=== PATIENT | male | born 1940 | race Caucasian/White ===

== ENCOUNTER → 2016-12-01 | Outpatient (CLI) | payer MEDICARE ==
[2016-12-01 19:35] LABS: FOLATE 6.89 ng/mL (>2.76)
[2016-12-02 17:16] LABS: FREE T3 3.23 pg/mL (2.77-5.27)
== END ==
LOC: OD 16:02
PROVIDERS: ATTEND Specialist
DX: F03.90 Unspecified dementia, unspecified severity, without behavioral disturbance, psychotic disturbance, mood disturbance, and anxiety (principal); Z79.899 Other long term (current) drug therapy
CPT/HCPCS: 36415; 82607; 82746; 84439; 84443; 84481

== ENCOUNTER → 2016-12-15 | Outpatient (CLI) | payer MEDICARE ==
--- NOTE | 2016-12-15 14:50 | RADIOLOGY REPORT (SQ) ---
EXAM DESCRIPTION: CT HEAD WITHOUT COMPLETED DATE/TIME: 12/15/2016 1:34 pm REASON FOR STUDY: DEMENTIA (F03.90) F03.90 UNSPECIFIED DEMENTIA WITHOUT BEHAVIORAL DISTURBANCE COMPARISON: No previous brain imaging available TECHNIQUE: Axial images acquired through the brain without intravenous contrast. Images reviewed wi th bone, brain and subdural windows. Images stored on PACS. All CT scanners at this facility use dose modulation, iterative reconstruction, and/or weight based d osing when appropriate to reduce radiation dose to as low as reasonably achievable (ALARA). [facility]: Dose Right [facility]: CareDose [facility]: Dose Right [facility]: Teradose 4D [facility]: [employer] RADIATION DOSE: Up-to-date CT equipment and radiation dose reduction techniques were employed. CTDIv ol: 49.0 mGy. DLP: 1371 mGy-cm. mGy. LIMITATIONS: Motion artifact FINDINGS: Motion artifact. Patient was scanned twice. 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 No gross CT evidence of acute large territory ischemic change, acute intracranial hemorrhage, mass effect, or midline shift. Limited bone window images demonstrate that the paranasal sinuses and mastoid air cells are clear. IMPRESSION: No acute findings. Multiple old infarcts as above. Limited study due to patient motion artifact. EVIDENCE OF ACUTE STROKE: NO. COMMENT: Quality ID # [id number]: Final reports with documentation of one or more dose reduction techniques (e.g., Automated exposure control, adjustment of the mA and/or kV according to patient size, use of iterative reconstruction technique) TECHNICAL DOCUMENTATION: JOB ID: [id number] [email or web address] All Rights Reserved
== END ==
LOC: RAD 13:03
PROVIDERS: ATTEND Specialist
DX: F03.90 Unspecified dementia, unspecified severity, without behavioral disturbance, psychotic disturbance, mood disturbance, and anxiety (principal)
CPT/HCPCS: 70450

== ENCOUNTER 2018-11-12 09:37 | Inpatient (IN) | payer MEDICARE ==
[2018-11-12] MEDS ORDERED: METHYLPREDNISOLONE INJ 125 MG/2 ML SDV ONE (09:54)
[2018-11-12] MEDS ORDERED: IPRATROPIUM/ALBUTEROL 0.5-2.5 MG/3 ML AMPUL NEB ONE ×2 (09:54→09:55)
[2018-11-12] MEDS ORDERED: METHYLPREDNISOLONE INJ 125 MG/2 ML SDV IV ONE (09:55)
--- NOTE | 2018-11-12 10:12 | ER Document Report ---
Entered by RICCARDO GREEN SCRIBE 11/12/18 1011 Acting as scribe for:ROSI SEGOVIA MD ED Respiratory Problem - General Chief Complaint: Shortness Of Breath Stated Complaint: DIFFICULTY BREATHING Time Seen by Provider: 11/12/18 09:57 Information source: Patient, Relative Notes: Patient is an 78-year-old male who presents to the emergency department today with complaints of a cough with associated shortness of breath for the last "couple of days". Both the and the patient are poor historians so history is limited. Patient reports his cough has been nonproductive. Patient states his shortness of breath seems to be coming from the inability to "get air out". Patient states he has a nebulizer at home but he has not used it for several months. describes the cough as a "hard cough". The spouse reports that his oxygen saturations have been low at home. He is normally on oxygen at nighttime only. TRAVEL OUTSIDE OF THE [place] IN LAST 30 DAYS: No - Related Data Allergies/Adverse Reactions: No Known Allergies Allergy (Verified 08/29/15 11:20) Past Medical History - General Information source: Patient - Social History Smoking Status: Former Smoker Cigarette use (# per day): No Frequency of alcohol use: None Drug Abuse: None Lives with: Family Family History: Reviewed & Not Pertinent - Past Medical History Cardiac Medical History: Reports: Hx Congestive Heart Failure, Hx Coronary Artery Disease, Hx Heart Attack, Hx Hypercholesterolemia, Hx Hypertension Pulmonary Medical History: Reports: Hx COPD Endocrine Medical History: Reports: Hx Diabetes Mellitus Type 2, Hx Hypothyroi dism Renal/ Medical History: Reports: Hx Benign Prostatic Hyperplasia, Hx Renal Insufficiency GI Medical History: Reports: Hx Gastroesophageal Reflux Disease Musculoskeletal Medical History: Reports Hx Arthritis Past Surgical History: Reports: Hx Cardiac Catheterization, Hx Coronary Stent, Hx Orthopedic Surgery - bilateral knee replacement, Hx Pacemaker - defib - Immunizations Immunizations up to date: No Hx Diphtheria, Pertussis, Tetanus Vaccination: No Review of Systems - Review of Systems Constitutional: No symptoms reported EENT: No symptoms reported Cardiovascular: No symptoms reported Respiratory: See HPI, Cough, Short of breath Gastrointestinal: No symptoms reported Genitourinary: No symptoms reported Male Genitourinary: No symptoms reported Musculoskeletal: See HPI, Leg swelling Skin: No symptoms reported Hematologic/Lymphatic: No symptoms reported Neurological/Psychological: No symptoms reported -: Yes All other systems reviewed and negative Physical Exam - Vital signs Vitals: Temp Pulse Resp BP Pulse Ox 98.1 F 87 26 H 159/63 H 81 L 11/12/18 09:43 11/12/18 09:43 11/12/18 09:43 11/12/18 09:43 11/12/18 09:43 - Notes Notes: physical Exam: General: Alert, appears short of breath, obese. HEENT: Normocephalic. Atraumatic. PERRL. Extraocular movements intact. Oropharynx clear. Neck: Supple. Non-tender. Respiratory: High pitched wheezing best heard at the level of the epiglottis. Moderate respiratory distress. Cardiovascular: Regular rate and rhythm. Abdominal: Morbidly obese. No distension. Normal Bowel Sounds. Back: No gross abnormalities. Extremities: Moves all four extremities. Upper extremities: Normal inspection. Normal ROM. Lower extremities: Brawny induration, 2-3+ pitting edema bilaterally which is unable to state if this is baseline or not. Neurological: Normal cognition. AAOx4. Normal speech. Psychological: Normal affect. Normal Mood. Skin: Warm. Dry. Normal color. Course - Vital Signs Vital signs: Temp Pulse Resp BP Pulse Ox 98.1 F 87 18 153/65 H 92 11/12/18 09:43 11/12/18 09:43 11/12/18 12:00 11/12/18 11:01 11/12/18 12:00 - Laboratory Result Diagrams: 11/12/18 09:58 11/12/18 09:58 Laboratory results interpreted by me: 11/12/18 11/12/18 11/12/18 09:58 09:58 09:58 RBC 3.66 L Hgb 9.3 L Hct 29.9 L MCH 25.3 L MCHC 31.1 L RDW 18.3 H Potassium 5.1 H BUN 25 H Creatinine 1.30 H Est GFR (MDRD) Non-Af 53 L Glucose 198 H Creatine Kinase 54 L NT-Pro-B Natriuret Pep 1620 H - Diagnostic Test Radiology reviewed: Image reviewed, Reports reviewed - Chest x-ray shows enlarged heart with congestive heart failure - EKG Interpretation by Me EKG shows normal: [place], Intervals, QRS Complexes, ST-T Waves Rate: Normal - 75 Rhythm: Other - Ventricular paced rhythm - Consults Stephen Dunaway NP Time consulted: 12:25 Consulted provider: will come to ER Critical Care Note - Critical Care Note Total time excluding time spent on procedures (mins): 40 Discharge - Discharge Clinical Impression: Peripheral edema, Hypoxemia Congestive heart failure Qualifiers: Heart failure type: unspecified Heart failure chronicity: acute on chronic Qualified Code(s): I50.9 - Heart failure, unspecified Dyspnea Qualifiers: Dyspnea type: unspecified Qualified Code(s): R06.00 - Dyspnea, unspecified Anemia Qualifiers: Anemia type: unspecified type Qualified Code(s): D64.9 - Anemia, unspecified Condition: Good Disposition: ADMITTED INPATIENT Admitting Provider: Alecia (Hospitalist) Unit Admitted: IVA Scribe Attestation: 11/12/18 12:44 I personally performed the services described in the documentation, reviewed and edited the documentation which was dictated to the scribe in my presence, and it accurately records my words and actions. I personally performed the services described in the documentation, reviewed and edited the documentation which was dictated to the scribe in my presence, and it accurately records my words and actions.
[2018-11-12 10:41] LABS: ABSOLUTE EOSINOPHILS # (AUTO) 0.3 10^3/uL (0.0-0.6); ABSOLUTE LYMPHOCYTES (AUTO) 0.9 10^3/uL (0.5-4.7); ABSOLUTE MONOCYTES (AUTO) 0.4 10^3/uL (0.1-1.4); BASOPHILS % (AUTO) 0.7 % (0-2); EOSINOPHILS % (AUTO) 4.2 % (0-6); HEMATOCRIT 29.9 % (37.9-51.0); HEMOGLOBIN 9.3 g/dL (13.5-17.0); LYMPHOCYTES % (AUTO) 13.4 % (13-45); MEAN CORPUSCULAR HEMOGLOBIN 25.3 pg (27.0-33.4); MEAN CORPUSCULAR HGB CONC 31.1 g/dL (32.0-36.0); MEAN CORPUSCULAR VOLUME 82 fl (80-97); MONOCYTES % (AUTO) 6.2 % (3-13); PLATELET COUNT 224 10^3/uL (150-450); RED BLOOD COUNT 3.66 10^6/uL (4.35-5.55); RED CELL DISTRIBUTION WIDTH 18.3 % (11.5-14.0); SEGMENTED NEUTROPHILS % (AUTO) 75.5 % (42-78); TOTAL CELLS COUNTED % (AUTO) 100 %; WHITE BLOOD COUNT 6.6 10^3/uL (4.0-10.5)
[2018-11-12] MEDS: ALBUTEROL SULFATE 0.083% NEB 2.5 MG/3 ML AMPUL NEB SCH (10:53)
[2018-11-12 11:01] LABS: ALBUMIN 3.8 g/dL (3.5-5.0); ALKALINE PHOSPHATASE 54 U/L (38-126); ANION GAP 8 (5-19); ASPARTATE AMINO TRANSFERASE 20 U/L (17-59); BILIRUBIN,DIRECT 0.4 mg/dL (0.0-0.4); BILIRUBIN,TOTAL 0.6 mg/dL (0.2-1.3); BLOOD UREA NITROGEN 25 mg/dL (7-20); CALCIUM 8.9 mg/dL (8.4-10.2); CARBON DIOXIDE 28 mmol/L (22-30); CHLORIDE 104 mmol/L (98-107); CREATINE KINASE 54 U/L (55-170); GLUCOSE 198 mg/dL (75-110); POTASSIUM 5.1 mmol/L (3.6-5.0); TOTAL PROTEIN 6.6 g/dL (6.3-8.2)
[2018-11-12 11:12] LABS: CREATINE KINASE MB 1.22 ng/mL (<4.55); NT PRO BNP 1620 pg/mL (<450); TROPONIN I < 0.012 ng/mL
--- NOTE | 2018-11-12 11:13 | RADIOLOGY REPORT (SQ) ---
EXAM DESCRIPTION: CHEST SINGLE VIEW COMPLETED DATE/TIME: 11/12/2018 10:16 am REASON FOR STUDY: SOB COMPARISON: None. NUMBER OF VIEWS: One view. TECHNIQUE: Single frontal radiographic view of the chest acquired. LIMITATIONS: None. FINDINGS: LUNGS AND PLEURA: Airspace disease in the lung bases, left greater than right. Small effu sions. MEDIASTINUM AND HILAR STRUCTURES: No masses or contour abnormality. HEART AND VASCULATURE: Cardiac enlargement. Vascular congestion. BONES: No acute findings. HARDWARE: Unchanged position of defibrillator. OTHER: No other significant finding. IMPRESSION: CHF. TECHNICAL DOCUMENTATION: JOB ID: [id number] [employer]- All Rights Reserved Reading location - IP/workstation name: [email or web address]
[2018-11-12] MEDS ORDERED: FUROSEMIDE INJ/PF 100 MG/10 ML SDV IV ONE (11:45)
[2018-11-12] MEDS ORDERED: TEMAZEPAM 15 MG CAPSULE PO PRN (12:49)
[2018-11-12] MEDS ORDERED: OXYCODONE-ACETAMINOPHEN 5-325 MG TABLET PO PRN (12:49)
[2018-11-12] MEDS ORDERED: ONDANSETRON HCL INJ/PF 4 MG/2 ML SDV IV PRN (12:49)
[2018-11-12] MEDS ORDERED: ACETAMINOPHEN 325 MG TABLET PO PRN (12:49)
[2018-11-12] MEDS ORDERED: DEXTROSE 50%-WATER 25 GM/50 ML DISP.SYRIN IV PRN ×2 (12:58)
[2018-11-12] MEDS ORDERED: DEXTROSE 40% GEL 15 GM TUBE PO PRN ×2 (12:58)
[2018-11-12] MEDS ORDERED: GLUCAGON,HUMAN RECOMB 1 MG INJ IM PRN (12:58)
--- NOTE | 2018-11-12 13:06 | Progress Note Acknowledgement ---
Progress Note Acknowledgement Progess Note Acknowledgement: I, the undersigned member of the medical staff with appropriate privileges and with supervisory authority over [Stephen Dunaway], a dependent practice allied health professional, acknowledge that I have reviewed the progress notes entered on this patient, and in my professional judgment believe that the assessment made and/or any care evidenced was appropriate
--- NOTE | 2018-11-12 13:22 | PDOC H&P ---
History of Present Illness Admission Date/PCP: 11/12/18 12:48 SHARYN JAFFE MD Patient complains of: Shortness of breath History of Present Illness: Santa MIXON is a 78 year old male who presents the ER with shortness of breath. Patient has a history of congestive heart failure unknown type at this time but I suspect its systolic nature as patient has AICD. We will get all records from [place]. Patient is on BiPAP in the ER at this time breathing much easier. Chest x-ray shows acute on chronic congestive heart failure. Patient did take at home medication include Lasix 80 minutes p.o. daily prior to arrival all active is been aggravating factor. Past Medical History Cardiac Medical History: Reports: Congestive Heart Failure, Coronary Artery Disease, Myocardial Infarction, Hyperlipidema, Hypertension Pulmonary Medical History: Reports: Chronic Obstructive Pulmonary Disease (COPD) Denies: Tuberculosis Endocrine Medical History: Reports: Diabetes Mellitus Type 2, Hypothyroidism GI Medical History: Reports: Gastroesophageal Reflux Disease Musculoskeltal Medical History: Reports: Arthritis Psychiatric Medical History: Denies: Depression Past Surgical History Past Surgical History: Reports: Cardiac Catheterization, Coronary Stent, Or thopedic Surgery - bilateral knee replacement, Pacemaker - defib Social History Information Source: Parent Lives with: Family Smoking Status: Former Smoker Frequency of Alcohol Use: None Hx Recreational Drug Use: No Drugs: None Hx Prescription Drug Abuse: No - Advance Directive Resuscitation Status: Full Code Family History Parental Family History Reviewed: Yes - Patient is a poor historian Children Family History Reviewed: Unknown Sibling(s) Family History Reviewed.: Unknown Medication/Allergy Home Medications: Carvedilol [Coreg 25 mg Tablet] 25 mg PO BID 05/22/11 Furosemide [Lasix 80 mg Tablet] 40 mg PO QAM 05/22/11 Hydralazine HCl [Apresoline 50 mg Tablet] 50 mg PO Q8 05/22/11 Potassium Chloride [Klor-Con 10 Meq Capsule ER] 20 meq PO QAM 05/22/11 Pravastatin Sodium [Pravachol] 40 mg PO QHS 05/22/11 Amlodipine Besylate [Norvasc 10 mg Tablet] 10 mg PO QAM 05/16/12 Aspirin [Ecotrin] 81 mg PO DAILY 04/24/15 Clopidogrel Bisulfate [Clopidogrel] 75 mg PO QAM 04/24/15 Cyanocobalamin (Vitamin B-12) [Vitamin B-12 100 mcg Tablet] 1,000 mg PO DAILY 04/24/15 Donepezil HCl 10 mg PO QAM 04/24/15 Finasteride 5 mg PO QAM 04/24/15 Glimepiride [Amaryl] 2 mg PO ACBRKFST 04/24/15 Tamsulosin HCl 0.4 mg PO PCSUPPER 04/24/15 Sacubitril/Valsartan [Entresto 49 mg-51 mg Tablet] 1 each PO BID #60 tablet 09/01/15 Levothyroxine Sodium 100 mcg PO Q6AM 11/12/18 Pantoprazole Sodium [Protonix [address] Tablet] 40 mg PO QAM 11/12/18 Umeclidinium Brm/Vilanterol Tr [Anoro Ellipta 62.5-25 Mcg INH] 1 each IH DAILY 11/12/18 Allergies/Adverse Reactions: No Known Allergies Allergy (Verified 08/29/15 11:20) Review of Systems Constitutional: ABSENT: chills, fever(s), headache(s), weight gain, weight loss Eyes: ABSENT: visual disturbances Ears: ABSENT: hearing changes Cardiovascular: ABSENT: chest pain, dyspnea on exertion, edema, orthropnea, palpitations Respiratory: PRESENT: dyspnea. ABSENT: cough, hemoptysis Gastrointestinal: ABSENT: abdominal pain, constipation, diarrhea, hematemesis, hematochezia, nausea, vomiting Genitourinary: ABSENT: dysuria, hematuria Musculoskeletal: ABSENT: joint swelling Integumentary: ABSENT: rash, wounds Neurological: ABSENT: abnormal gait, abnormal speech, confusion, dizziness, focal weakness, syncope Psychiatric: ABSENT: anxiety, depression, homidical ideation, suicidal ideation Endocrine: ABSENT: cold intolerance, heat intolerance, polydipsia, polyuria Hematologic/Lymphatic: ABSENT: easy bleeding, easy bruising Physical Exam Vital Signs: Temp Pulse Resp BP Pulse Ox 98.1 F 87 18 153/65 H 92 11/12/18 09:43 11/12/18 09:43 11/12/18 12:00 11/12/18 11:01 11/12/18 12:00 Intake & Output 11/11/18 11/12/18 11/13/18 06:59 06:59 06:59 Weight 134.8 kg General appearance: PRESENT: no acute distress, well-developed, well-nourished Head exam: PRESENT: atraumatic, normocephalic Eye exam: PRESENT: conjunctiva pink, EOMI, PERRLA. ABSENT: scleral icterus Ear exam: PRESENT: normal external ear exam Mouth exam: PRESENT: moist, tongue midline Neck exam: ABSENT: carotid bruit, JVD, lymphadenopathy, thyromegaly Respiratory exam: PRESENT: crackles, decreased breath sounds, symmetrical, tachypnea, other - On BiPAP. ABSENT: rales, rhonchi, wheezes Cardiovascular exam: PRESENT: RRR. ABSENT: diastolic murmur, rubs, systolic murmur Pulses: PRESENT: normal dorsalis pedis pul Vascular exam: PRESENT: normal capillary refill GI/Abdominal exam: PRESENT: normal bowel sounds, soft. ABSENT: distended, guarding, mass, organolmegaly, rebound, tenderness Extremities exam: PRESENT: full ROM. ABSENT: calf tenderness, clubbing, pedal edema Neurological exam: PRESENT: alert, awake, oriented to person, oriented to place, oriented to time, oriented to situation, CN II-XII grossly intact. ABSENT: m otor sensory deficit Psychiatric exam: PRESENT: appropriate affect, normal mood. ABSENT: homicidal ideation, suicidal ideation Skin exam: PRESENT: dry, intact, warm. ABSENT: cyanosis, rash Results Laboratory Results: 11/12/18 09:58 11/12/18 09:58 11/12/18 11/12/18 11/12/18 09:58 09:58 10:20 WBC 6.6 RBC 3.66 L Hgb 9.3 L Hct 29.9 L MCV 82 MCH 25.3 L MCHC 31.1 L RDW 18.3 H Plt Count 224 Seg Neutrophils % 75.5 Sodium 139.5 Potassium 5.1 H Chloride 104 Carbon Dioxide 28 Anion Gap 8 BUN 25 H Creatinine 1.30 H Est GFR ( Amer) > 60 Glucose 198 H Lactic Acid 1.8 Calcium 8.9 Total Bilirubin 0.6 AST 20 Alkaline Phosphatase 54 Total Protein 6.6 Albumin 3.8 11/12/18 11/12/18 09:58 09:58 Creatine Kinase 54 L CK-MB (CK-2) 1.22 Troponin I < 0.012 NT-Pro-B Natriuret Pep 1620 H Impressions: Chest X-Ray 11/12/18 09:55 IMPRESSION: CHF. Assessment and Plan - Diagnosis (1) Acute on chronic systolic (congestive) heart failure Is this a current diagnosis for this admission?: Yes Plan: 11/12/2018-most likely a systolic in nature as patient does have a AICD. I discussed this with Dr. Juan no echo will be performed as patient has a AICD. We will obtain records from [place]. Will place patient on Lasix 40 g IV 3 times daily, continue beta-blockers, will add GUSTAVO inhibitor and Aldactone as appropriate (2) Chronic kidney disease, stage III (moderate) Is this a current diagnosis for this admission?: Yes Plan: 11/12/2018-stable at this time. We will continue to follow daily BMPs. Once I see a bump in his creatinine I will cut back on his Lasix at that time. (3) Hyperkalemia Is this a current diagnosis for this admission?: Yes Plan: 11/12/2018-mild. Potassium 5.1. Patient will be diuresed this will most likely drop the potassium to normal range. We will continue to follow daily BMP (4) Respiratory distress Is this a current diagnosis for this admission?: Yes Plan: 11/12/2018-patient on BiPAP this time much more comfortable. We will continue BiPAP until patient is diuresed and able to breathe and talk full sentences. We will have her respiratory therapy follow make changes to BiPAP as necessary (5) Diabetes mellitus type 2 in obese Is this a current diagnosis for this admission?: Yes Plan: 11/12/2018-blood sugar in the ER is 198. Will place patient on sliding scale insulin before meals and at bedtime with cardiac diet. Will continue home oral medication once patient is able to take all medications as he is on BiPAP at this moment (6) Hypertension Is this a current diagnosis for this admission?: Yes Plan: 11/12/2018-continue Apresoline, Entresto and Norvasc at this time. Patient will be given Lasix 40 mg IV 3 times daily. (7) Coronary artery disease Is this a current diagnosis for this admission?: Yes Plan: 11/12/2018-continue Plavix (8) Anemia Qualifiers: Anemia type: unspecified type Qualified Code(s): D64.9 - Anemia, unspecified Is this a current diagnosis for this admission?: Yes Plan: 11/12/2018-after reviewing previous CBCs seem to be chronic in nature. We will continue to follow daily CBCs (9) Hypothyroidism Is this a current diagnosis for this admission?: Yes Plan: 11/12/2018-continue Synthroid from home - Time Time Spent with patient: 35 or more minutes - Inpatient Certification Based on my medical assessment, after consideration of the patient's comorbidities, presenting symptoms, or acuity I expect that the services needed warrant INPATIENT care.: Yes I certify that my determination is in accordance with my understanding of Medicare's requirements for reasonable and necessary INPATIENT services [42 CFR 412.3e].: Yes Medical Necessity: Other - BiPAP, IV diuresis
[2018-11-12 14:51] LABS: APPEARANCE,URINE CLEAR; BILIRUBIN,URINE NEGATIVE (NEGATIVE); COLOR,URINE YELLOW; GLUCOSE, URINE NEGATIVE (NEGATIVE); KETONES,URINE NEGATIVE (NEGATIVE); LEUKOCYTE ESTERASE,URINE NEGATIVE (NEGATIVE); NITRITE,URINE NEGATIVE (NEGATIVE); PROTEIN,URINE NEGATIVE (NEGATIVE); URINE SPECIFIC GRAVITY 1.008; UROBILINOGEN,URINE NEGATIVE mg/dL (<2.0)
[2018-11-12] MEDS: FUROSEMIDE INJ/PF 40 MG/4 ML SDV IV SCH ×2 (15:51→21:59)
[2018-11-12] MEDS: INSULIN REG, HUMAN 100 UNIT/ML 3 ML VIAL (PYX) SUBCUT SCH ×2 (15:58→22:05)
[2018-11-12] MEDS: HYDRALAZINE HCL 50 MG TABLET PO SCH ×2 (15:58→21:58)
[2018-11-12] MEDS: HEPARIN SOD (PORCINE) 5,000 UNIT/ML 1 ML VIAL SUBCUT SCH ×2 (15:58→21:59)
[2018-11-12] MEDS ORDERED: ALBUTEROL SULFATE 0.083% NEB 2.5 MG/3 ML AMPUL NEB PRN (16:18)
[2018-11-12] MEDS: TAMSULOSIN HCL 0.4 MG CAP.SR.24H PO SCH (17:34)
[2018-11-12] MEDS: SACUBITRIL/VALSARTAN 49 MG/51 MG TABLET PO SCH (17:34)
[2018-11-12] MEDS: ATORVASTATIN CALCIUM 10 MG TABLET PO SCH (21:58)
[2018-11-12] MEDS ORDERED: (PENDING PHARMACY ID) (Pravastatin Sodium [Pravachol] 40 MG) PO SCH (22:00)
[2018-11-12] MEDS ORDERED: CARVEDILOL 12.5 MG TABLET PO SCH (22:00)
--- NOTE | 2018-11-13 00:15 | EKG REPORT ---
SEVERITY:- ABNORMAL ECG - VENTRICULAR-PACED RHYTHM : Confirmed by: Keira Juan MD 13-Nov-2018 00:14:48
[2018-11-13] MEDS ORDERED: METHYLPREDNISOLONE INJ 40 MG/1 ML SDV IV ONE (02:15)
[2018-11-13 05:14] LABS: ABSOLUTE LYMPHOCYTES (AUTO) 0.6 10^3/uL (0.5-4.7); ABSOLUTE MONOCYTES (AUTO) 0.1 10^3/uL (0.1-1.4); ABSOLUTE NEUT (AUTO) 4.1 10^3/uL (1.7-8.2); BASOPHILS % (AUTO) 0.1 % (0-2); HEMATOCRIT 28.7 % (37.9-51.0); LYMPHOCYTES % (AUTO) 12.6 % (13-45); MEAN CORPUSCULAR HEMOGLOBIN 25.3 pg (27.0-33.4); MEAN CORPUSCULAR HGB CONC 31.4 g/dL (32.0-36.0); MEAN CORPUSCULAR VOLUME 81 fl (80-97); MONOCYTES % (AUTO) 2.6 % (3-13); PLATELET COUNT 182 10^3/uL (150-450); RED BLOOD COUNT 3.57 10^6/uL (4.35-5.55); RED CELL DISTRIBUTION WIDTH 17.9 % (11.5-14.0); SEGMENTED NEUTROPHILS % (AUTO) 84.7 % (42-78); TOTAL CELLS COUNTED % (AUTO) 100 %; WHITE BLOOD COUNT 4.9 10^3/uL (4.0-10.5)
[2018-11-13 05:33] LABS: ANION GAP 8 (5-19); BLOOD UREA NITROGEN 28 mg/dL (7-20); CARBON DIOXIDE 30 mmol/L (22-30); CHLORIDE 101 mmol/L (98-107); GLUCOSE 189 mg/dL (75-110); PHOSPHORUS 4.8 mg/dL (2.5-4.5)
[2018-11-13] MEDS: HEPARIN SOD (PORCINE) 5,000 UNIT/ML 1 ML VIAL SUBCUT SCH ×3 (05:36→21:25)
[2018-11-13] MEDS: FUROSEMIDE INJ/PF 40 MG/4 ML SDV IV SCH (05:36)
[2018-11-13] MEDS: LEVOTHYROXINE SODIUM 0.1 MG TABLET PO SCH (05:37)
[2018-11-13] MEDS: HYDRALAZINE HCL 50 MG TABLET PO SCH ×3 (05:37→21:25)
[2018-11-13 06:57] LABS: ARTERIAL BLOOD BASE EXCESS 3.7 mmol/L; ARTERIAL BLOOD HCO3 29.3 mmol/L (20-24); ARTERIAL BLOOD O2 SATURATION 96.3 % (94-98); ARTERIAL BLOOD PCO2 49.9 mmHg (35-45); ARTERIAL BLOOD PH 7.39 (7.35-7.45); ARTERIAL BLOOD PO2 85.7 mmHg (80-100); ARTERIAL BLOOD TOTAL CO2 30.9 mmol/L (23-27)
[2018-11-13 06:59] LABS: ARTERIAL BLOOD FIO2 50%
[2018-11-13] MEDS: GLIMEPIRIDE 1 MG TABLET PO SCH (07:55)
[2018-11-13] MEDS: CLOPIDOGREL BISULFATE 75 MG TABLET PO SCH (07:55)
[2018-11-13] MEDS: INSULIN REG, HUMAN 100 UNIT/ML 3 ML VIAL (PYX) SUBCUT SCH ×4 (07:56→21:25)
[2018-11-13] MEDS: PANTOPRAZOLE SODIUM 40 MG TABLET.DR PO SCH (07:56)
[2018-11-13] MEDS: AMLODIPINE BESYLATE 10 MG TABLET PO SCH (07:56)
[2018-11-13] MEDS: DONEPEZIL HCL 5 MG TABLET PO SCH (07:56)
[2018-11-13] MEDS ORDERED: (PENDING PHARMACY ID) (Donepezil Hcl [Donepezil Hcl] 10 MG) PO SCH (08:00)
--- NOTE | 2018-11-13 08:14 | PDOC PROGRESS REPORT ---
Subjective Progress Note for:: 11/13/18 Subjective:: 11/13/2018-no complaints this a.m. Reason For Visit: ACUTE ON CHRONIC CONGESTIVE HEART FAILURE Physical Exam Vital Signs: Temp Pulse Resp BP Pulse Ox 97.8 F 68 20 147/70 H 95 11/13/18 07:33 11/13/18 07:33 11/13/18 07:33 11/13/18 07:33 11/13/18 07:33 Intake & Output 11/12/18 11/13/18 11/14/18 06:59 06:59 06:59 Intake Total 1152 Output Total 500 Balance 652 Weight 131 kg General appearance: PRESENT: no acute distress, well-developed, well-nourished Head exam: PRESENT: atraumatic, normocephalic Eye exam: PRESENT: conjunctiva pink, EOMI, PERRLA. ABSENT: scleral icterus Ear exam: PRESENT: normal external ear exam Mouth exam: PRESENT: moist, tongue midline Neck exam: ABSENT: carotid bruit, JVD, lymphadenopathy, thyromegaly Respiratory exam: PRESENT: decreased breath sounds, rales, symmetrical, unlabored, wheezes. ABSENT: rhonchi Cardiovascular exam: PRESENT: RRR. ABSENT: diastolic murmur, rubs, systolic murmur Pulses: PRESENT: normal dorsalis pedis pul Vascular exam: PRESENT: normal capillary refill GI/Abdominal exam: PRESENT: normal bowel sounds, soft. ABSENT: distended, guarding, mass, organolmegaly, rebound, tenderness Rectal exam: PRESENT: deferred Extremities exam: PRESENT: full ROM. ABSENT: calf tenderness, clubbing, pedal edema Neurological exam: PRESENT: alert, awake, oriented to person, oriented to place, oriented to time, oriented to situation, CN II-XII grossly intact. ABSENT: motor sensory deficit Psychiatric exam: PRESENT: appropriate affect, normal mood. ABSENT: homicidal ideation, suicidal ideation Skin exam: PRESENT: dry, intact, warm. ABSENT: cyanosis, rash Results Laboratory Results: 11/13/18 04:48 11/13/18 04:48 11/12/18 11/12/18 11/12/18 09:58 09:58 10:20 WBC 6.6 RBC 3.66 L Hgb 9.3 L Hct 29.9 L MCV 82 MCH 25.3 L MCHC 31.1 L RDW 18.3 H Plt Count 224 Seg Neutrophils % 75.5 Carbonic Acid HCO3/H2CO3 Ratio ABG pH ABG pCO2 ABG pO2 ABG HCO3 ABG O2 Saturation ABG Base Excess FiO2 Sodium 139.5 Potassium 5.1 H Chloride 104 Carbon Dioxide 28 Anion Gap 8 BUN 25 H Creatinine 1.30 H Est GFR ( Amer) > 60 Glucose 198 H Lactic Acid 1.8 Calcium 8.9 Phosphorus Magnesium Total Bilirubin 0.6 AST 20 Alkaline Phosphatase 54 Total Protein 6.6 Albumin 3.8 Urine Color Urine Appearance Urine pH Ur Specific [place] Urine Protein Urine Glucose (UA) Urine Ketones Urine Blood Urine Nitrite Ur Leukocyte Esterase Urine WBC (Auto) Urine RBC (Auto) 11/12/18 11/13/18 11/13/18 14:15 04:48 04:48 WBC 4.9 RBC 3.57 L Hgb 9.0 L Hct 28.7 L MCV 81 MCH 25.3 L MCHC 31.4 L RDW 17.9 H Plt Count 182 Seg Neutrophils % 84.7 H Carbonic Acid HCO3/H2CO3 Ratio ABG pH ABG pCO2 ABG pO2 ABG HCO3 ABG O2 Saturation ABG Base Excess FiO2 Sodium 139.1 Potassium 5.0 Chloride 101 Carbon Dioxide 30 Anion Gap 8 BUN 28 H Creatinine 1.42 H Est GFR ( Amer) 58 L Glucose 189 H Lactic Acid Calcium 9.0 Phosphorus 4.8 H Magnesium 2.5 H Total Bilirubin AST Alkaline Phosphatase Total Protein Albumin Urine Color YELLOW Urine Appearance CLEAR Urine pH 5.0 Ur Specific [place] 1.008 Urine Protein NEGATIVE Urine Glucose (UA) NEGATIVE Urine Ketones NEGATIVE Urine Blood NEGATIVE Urine Nitrite NEGATIVE Ur Leukocyte Esterase NEGATIVE Urine WBC (Auto) 0 Urine RBC (Auto) 0 11/13/18 05:34 WBC RBC Hgb Hct MCV MCH MCHC RDW Plt Count Seg Neutrophils % Carbonic Acid 1.50 H HCO3/H2CO3 Ratio 19:1 ABG pH 7.39 ABG pCO2 49.9 H ABG pO2 85.7 ABG HCO3 29.3 H ABG O2 Saturation 96.3 ABG Base Excess 3.7 FiO2 50% Sodium Potassium Chloride Carbon Dioxide Anion Gap BUN Creatinine Est GFR ( Amer) Glucose Lactic Acid Calcium Phosphorus Magnesium Total Bilirubin AST Alkaline Phosphatase Total Protein Albumin Urine Color Urine Appearance Urine pH Ur Specific [place] Urine Protein Urine Glucose (UA) Urine Ketones Urine Blood Urine Nitrite Ur Leukocyte Esterase Urine WBC (Auto) Urine RBC (Auto) 11/12/18 11/12/18 11/13/18 09:58 09:58 04:48 Creatine Kinase 54 L CK-MB (CK-2) 1.22 Troponin I < 0.012 NT-Pro-B Natriuret Pep 1620 H 2830 H Impressions: Chest X-Ray 11/12/18 09:55 IMPRESSION: CHF. Assessment and Plan - Diagnosis (1) Acute on chronic systolic (congestive) heart failure Is this a current diagnosis for this admission?: Yes Plan: 11/12/2018-most likely a systolic in nature as patient does have a AICD. I discussed this with Dr. Juan no echo will be performed as patient has a AICD. We will obtain records from [place]. Will place patient on Lasix 40 g IV 3 times daily, continue beta-blockers, will add GUSTAVO inhibitor and Aldactone as appropriate 11/13/2018-improved. Rales have diminished greatly. Patient does have an elevation in his BNP not sure if this is not just from his pulmonary disease. B reathing much easier able to talk in full sentences. He remained on BiPAP overnight. Awaiting records from transit clerk in [place]. DC IV Lasix. Place patient on Lasix 40 mg p.o. twice daily. This patient does have a history of COPD I will change his beta-latonya to metoprolol succinate 25 mg p.o. twice daily. Await echocardiogram results. (2) Chronic kidney disease, stage III (moderate) Is this a current diagnosis for this admission?: Yes Plan: 11/12/2018-stable at this time. We will continue to follow daily BMPs. Once I see a bump in his creatinine I will cut back on his Lasix at that time. 11/13/2018-slight bump in his creatinine this morning. Will DC IV Lasix Place patient on Lasix 40 g p.o. twice daily. Continue to follow daily renal panels. (3) Hyperkalemia Is this a current diagnosis for this admission?: Yes Plan: 11/12/2018-mild. Potassium 5.1. Patient will be diuresed this will most likely drop the potassium to normal range. We will continue to follow daily BMP 11/13/2018-improved. Continue diuresis. daily BMP. (4) Respiratory distress Is this a current diagnosis for this admission?: Yes Plan: 11/12/2018-patient on BiPAP this time much more comfortable. We will continue BiPAP until patient is diuresed and able to breathe and talk full sentences. We will have her respiratory therapy follow make changes to BiPAP as necessary 11/13/2018-improved at this time. Patient remains on BiPAP at night. Able to tolerate nasal cannula set up in the chair and eating. We will continue to follow continue BiPAP at night (5) Diabetes mellitus type 2 in obese Is this a current diagnosis for this admission?: Yes Plan: 11/12/2018-blood sugar in the ER is 198. Will place patient on sliding scale insulin before meals and at bedtime with cardiac diet. Will continue home oral medication once patient is able to take all medications as he is on BiPAP at this moment 11/13/2018-much improved. Will DC IV steroids Place patient on p.o. steroids. We will continue sliding scale insulin coverage before meals and at bedtime and oral medications. (6) Hypertension Is this a current diagnosis for this admission?: Yes Plan: 11/12/2018-continue Apresoline, Entresto and Norvasc at this time. Patient will be given Lasix 40 mg IV 3 times daily. 11/13/2018-continue Apresoline, Entresto, Norvasc. Added metoprolol succinate 25 mill grams p.o. twice daily. DC'd IV Lasix Place patient on Lasix 40 g p.o. 3 times daily (7) Coronary artery disease Is this a current diagnosis for this admission?: Yes Plan: 11/12/2018-continue Plavix 11/13/2018-continue Plavix (8) Anemia Qualifiers: Anemia type: unspecified type Qualified Code(s): D64.9 - Anemia, unspecified Is this a current diagnosis for this admission?: Yes Plan: 11/12/2018-after reviewing previous CBCs seem to be chronic in nature. We will continue to follow daily CBCs 11/13/2018-stable continue daily CBCs (9) Hypothyroidism Is this a current diagnosis for this admission?: Yes Plan: 11/12/2018-continue Synthroid from home 11/13/2018-continue Synthroid - Time Time Spent with patient: 15-24 minutes - Inpatient Certification Based on my medical assessment, after consideration of the patient's comorbidities, presenting symptoms, or acuity I expect that the services needed warrant INPATIENT care.: Yes I certify that my determination is in accordance with my understanding of Medicare's requirements for reasonable and necessary INPATIENT services [42 CFR 412.3e].: Yes Medical Necessity: Need for IV Antibiotics, Other - Diuresis, supportive care for COPD
[2018-11-13] MEDS: PREDNISONE 20 MG TABLET PO SCH (09:08)
[2018-11-13] MEDS: METOPROLOL SUCCINATE 25 MG TAB.SR.24H PO SCH ×2 (09:08→21:25)
[2018-11-13] MEDS: SACUBITRIL/VALSARTAN 49 MG/51 MG TABLET PO SCH ×2 (09:08→17:39)
[2018-11-13] MEDS: FUROSEMIDE 40 MG TABLET PO SCH ×2 (09:08→17:38)
[2018-11-13] MEDS: ASPIRIN 81 MG TABLET, ENT COATED PO SCH (09:08)
[2018-11-13] MEDS ORDERED: METHYLPREDNISOLONE INJ 40 MG/1 ML SDV IV SCH (10:00)
[2018-11-13] MEDS ORDERED: LISINOPRIL 5 MG TABLET PO SCH (10:00)
[2018-11-13] MEDS: TAMSULOSIN HCL 0.4 MG CAP.SR.24H PO SCH (17:38)
[2018-11-13] MEDS: ATORVASTATIN CALCIUM 10 MG TABLET PO SCH (21:25)
[2018-11-14 04:55] LABS: ABSOLUTE LYMPHOCYTES (AUTO) 0.7 10^3/uL (0.5-4.7); ABSOLUTE MONOCYTES (AUTO) 0.5 10^3/uL (0.1-1.4); ABSOLUTE NEUT (AUTO) 8.3 10^3/uL (1.7-8.2); HEMATOCRIT 27.7 % (37.9-51.0); HEMOGLOBIN 8.8 g/dL (13.5-17.0); LYMPHOCYTES % (AUTO) 7.3 % (13-45); MEAN CORPUSCULAR HEMOGLOBIN 25.3 pg (27.0-33.4); MEAN CORPUSCULAR HGB CONC 31.9 g/dL (32.0-36.0); MEAN CORPUSCULAR VOLUME 79 fl (80-97); MONOCYTES % (AUTO) 5.7 % (3-13); PLATELET COUNT 212 10^3/uL (150-450); RED BLOOD COUNT 3.49 10^6/uL (4.35-5.55); RED CELL DISTRIBUTION WIDTH 17.7 % (11.5-14.0); TOTAL CELLS COUNTED % (AUTO) 100 %; WHITE BLOOD COUNT 9.5 10^3/uL (4.0-10.5)
[2018-11-14 05:10] LABS: ANION GAP 7 (5-19); BLOOD UREA NITROGEN 42 mg/dL (7-20); CARBON DIOXIDE 33 mmol/L (22-30); CHLORIDE 99 mmol/L (98-107); GLUCOSE 115 mg/dL (75-110); POTASSIUM 4.5 mmol/L (3.6-5.0)
[2018-11-14] MEDS: HEPARIN SOD (PORCINE) 5,000 UNIT/ML 1 ML VIAL SUBCUT SCH ×3 (05:57→21:33)
[2018-11-14] MEDS: HYDRALAZINE HCL 50 MG TABLET PO SCH ×3 (05:57→21:33)
[2018-11-14] MEDS: LEVOTHYROXINE SODIUM 0.1 MG TABLET PO SCH (05:57)
[2018-11-14] MEDS: CLOPIDOGREL BISULFATE 75 MG TABLET PO SCH (07:37)
[2018-11-14] MEDS: DONEPEZIL HCL 5 MG TABLET PO SCH (07:38)
[2018-11-14] MEDS: GLIMEPIRIDE 1 MG TABLET PO SCH (07:38)
[2018-11-14] MEDS: AMLODIPINE BESYLATE 10 MG TABLET PO SCH (07:38)
[2018-11-14] MEDS: PANTOPRAZOLE SODIUM 40 MG TABLET.DR PO SCH (07:38)
[2018-11-14] MEDS: INSULIN REG, HUMAN 100 UNIT/ML 3 ML VIAL (PYX) SUBCUT SCH ×4 (07:41→22:33)
[2018-11-14] MEDS: FUROSEMIDE 40 MG TABLET PO SCH (09:25)
[2018-11-14] MEDS: PREDNISONE 20 MG TABLET PO SCH (09:25)
[2018-11-14] MEDS: METOPROLOL SUCCINATE 25 MG TAB.SR.24H PO SCH ×2 (09:26→21:33)
[2018-11-14] MEDS: ASPIRIN 81 MG TABLET, ENT COATED PO SCH (09:26)
[2018-11-14] MEDS: SACUBITRIL/VALSARTAN 49 MG/51 MG TABLET PO SCH ×2 (09:26→17:09)
--- NOTE | 2018-11-14 16:35 | PDOC PROGRESS REPORT ---
Subjective Progress Note for:: 11/14/18 Subjective:: The patient is an 78 year old male with a past medical history significant for CHF, CAD, [place], hypertension, hyperlipidemia, COPD, DM 2, hypothyroidism, GERD, arthritis who was admitted 11/12/2018 for CHF exacerbation. Next Patient was seen on morning rounds. Is found resting in bed comfortably on supplemental oxygen via nasal cannula 3 L/min. He is alert and oriented x3 (person, place, situation) and tells me that he uses 2 to 3 L O2 at baseline. He reports that he is nonambulatory but utilizes a scooter in the home. He states that he is feeling well today other than being slightly homesick and has no complaints or concerns. He denies fever, chills, chest pain, palpitations, orthopnea, dyspnea, cough, abdominal pain, nausea vomiting or diarrhea. He has no questions or concerns at this time. No concerns per nursing. Reason For Visit: ACUTE ON CHRONIC CONGESTIVE HEART FAILURE Physical Exam Vital Signs: Temp Pulse Resp BP Pulse Ox 97.4 F 67 18 123/41 L 93 11/14/18 11:14 11/14/18 14:00 11/14/18 11:14 11/14/18 11:14 11/14/18 11:14 Intake & Output 11/13/18 11/14/18 11/15/18 06:59 06:59 06:59 Intake Total 1152 640 240 Output Total 500 400 Balance 652 240 240 Weight 131 kg 130.7 kg General appearance: PRESENT: no acute distress, cooperative, morbidly obese, well-developed, well-nourished Head exam: PRESENT: atraumatic, normocephalic Eye exam: PRESENT: conjunctiva pink, EOMI, PERRLA. ABSENT: scleral icterus Ear exam: PRESENT: normal external ear exam Mouth exam: PRESENT: moist, tongue midline Neck exam: ABSENT: carotid bruit, JVD, lymphadenopathy, thyromegaly Respiratory exam: PRESENT: clear to auscultation leann, symmetrical, unlabored. ABSENT: rales, rhonchi, wheezes Cardiovascular exam: PRESENT: RRR, +S1, +S2. ABSENT: diastolic murmur, rubs, systolic murmur Pulses: PRESENT: normal dorsalis pedis pul Vascular exam: PRESENT: normal capillary refill GI/Abdominal exam: PRESENT: normal bowel sounds, soft, other - Rotund. ABSENT: distended, guarding, mass, organolmegaly, rebound, tenderness Rectal exam: PRESENT: deferred Extremities exam: PRESENT: full ROM. ABSENT: calf tenderness, clubbing, pedal edema Neurological exam: PRESENT: alert, awake, oriented to person, oriented to place, oriented to time, oriented to situation, CN II-XII grossly intact. ABSENT: motor sensory deficit Psychiatric exam: PRESENT: appropriate affect, normal mood. ABSENT: homicidal ideation, suicidal ideation Skin exam: PRESENT: dry, intact, warm. ABSENT: cyanosis, rash Results Laboratory Results: 11/14/18 04:16 11/14/18 04:16 11/14/18 11/14/18 04:16 04:16 WBC 9.5 RBC 3.49 L Hgb 8.8 L Hct 27.7 L MCV 79 L MCH 25.3 L MCHC 31.9 L RDW 17.7 H Plt Count 212 Seg Neutrophils % 87.0 H Sodium 139.3 Potassium 4.5 Chloride 99 Carbon Dioxide 33 H Anion Gap 7 BUN 42 H Creatinine 1.62 H Est GFR ( Amer) 50 L Glucose 115 H Calcium 9.0 11/12/18 11/12/18 11/13/18 09:58 09:58 04:48 Creatine Kinase 54 L CK-MB (CK-2) 1.22 Troponin I < 0.012 NT-Pro-B Natriuret Pep 1620 H 2830 H Impressions: Chest X-Ray 11/12/18 09:55 IMPRESSION: CHF. Assessment and Plan - Diagnosis (1) Acute on chronic systolic (congestive) heart failure Is this a current diagnosis for this admission?: Yes Plan: Acute exacerbation has resolved. The patient was admitted with dyspnea, orthopnea, hypoxia, and elevated proBNP. proBNP remains elevated 2830, although should be reviewed in light of his obesity and CKD 3. The patient is now maintaining oxygen saturations at rest on his baseline oxygen requirement and is comfortable lying supine. Continue amlodipine, hydralazine, metoprolol, Entresto, home dose furosemide, a spirin, Plavix, and statin therapy. Cardiac diet. Daily weights. (2) Chronic kidney disease, stage III (moderate) Is this a current diagnosis for this admission?: Yes Plan: Overall stable; creatinine is up to 1.62 from 1.30 on admission. Does appear that his baseline is 1.6-2.0. Excellent urinary output. Avoid nephrotoxic medications as able. Continue monitor daily chemistries. (3) Anemia Qualifiers: Anemia type: unspecified type Qualified Code(s): D64.9 - Anemia, unspecified Is this a current diagnosis for this admission?: Yes Plan: Hemoglobin is stable at 8.8. No evidence of active bleeding at this time. Continue multivitamin with iron. (4) Coronary artery disease Is this a current diagnosis for this admission?: Yes Plan: Patient denies active chest pain. Continue aspirin and Plavix. Continue antihypertensives as above. (5) Diabetes mellitus type 2 in obese Is this a current diagnosis for this admission?: Yes Plan: Continue home dose Amaryl. Accu-Cheks before meals and at bedtime with sliding scale insulin. Consistent carb diet. (6) Hypothyroidism Is this a current diagnosis for this admission?: Yes Plan: Continue home dose Synthroid. (7) Respiratory distress Is this a current diagnosis for this admission?: Yes Plan: Resolved; secondary to #1. Patient is now maintaining oxygen saturations on his baseline oxygen requirement of 2 to 3 L/min. (8) Hyperkalemia Is this a current diagnosis for this admission?: Yes Plan: Resolved. - Time Time Spent with patient: 25-34 minutes Medications reviewed and adjusted accordingly: Yes Anticipated discharge: Home Within: within 24 hours - Plan Summary Plan Summary: Need to get discussed with the patient's his baseline mobility status; would recommend discharge to home with home health nursing, physical therapy, Occupational Therapy, aide and 7th grade social studies teacher services. Anticipate discharge to home tomorrow.
--- NOTE | 2018-11-14 16:36 | Progress Note Acknowledgement ---
Progress Note Acknowledgement Progess Note Acknowledgement: I, the undersigned member of the medical staff with appropriate privileges and with supervisory authority over Dolores Stewart, a [facility] practice allied health professional, acknowledge that I have reviewed the progress notes entered on this patient, and in my professional judgment believe that the assessment made and/or any care evidenced was appropriate
[2018-11-14] MEDS: TAMSULOSIN HCL 0.4 MG CAP.SR.24H PO SCH (17:09)
[2018-11-14] MEDS: ATORVASTATIN CALCIUM 10 MG TABLET PO SCH (21:33)
[2018-11-15] MEDS: LEVOTHYROXINE SODIUM 0.1 MG TABLET PO SCH (05:05)
[2018-11-15] MEDS: HEPARIN SOD (PORCINE) 5,000 UNIT/ML 1 ML VIAL SUBCUT SCH ×2 (05:05→13:31)
[2018-11-15] MEDS: HYDRALAZINE HCL 50 MG TABLET PO SCH ×2 (05:05→13:31)
[2018-11-15 06:05] LABS: ABSOLUTE MONOCYTES (AUTO) 0.6 10^3/uL (0.1-1.4); HEMATOCRIT 30.1 % (37.9-51.0); HEMOGLOBIN 9.5 g/dL (13.5-17.0); MEAN CORPUSCULAR HEMOGLOBIN 24.9 pg (27.0-33.4); MEAN CORPUSCULAR HGB CONC 31.6 g/dL (32.0-36.0); MEAN CORPUSCULAR VOLUME 79 fl (80-97); MONOCYTES % (AUTO) 8.3 % (3-13); PLATELET COUNT 227 10^3/uL (150-450); RED BLOOD COUNT 3.82 10^6/uL (4.35-5.55); SEGMENTED NEUTROPHILS % (AUTO) 78.7 % (42-78); TOTAL CELLS COUNTED % (AUTO) 100 %; WHITE BLOOD COUNT 7.6 10^3/uL (4.0-10.5)
[2018-11-15 06:23] LABS: ANION GAP 9 (5-19); BLOOD UREA NITROGEN 48 mg/dL (7-20); CARBON DIOXIDE 32 mmol/L (22-30); CHLORIDE 99 mmol/L (98-107); GLUCOSE 102 mg/dL (75-110); POTASSIUM 4.3 mmol/L (3.6-5.0)
[2018-11-15] MEDS: INSULIN REG, HUMAN 100 UNIT/ML 3 ML VIAL (PYX) SUBCUT SCH ×2 (09:36→11:39)
[2018-11-15] MEDS: PREDNISONE 20 MG TABLET PO SCH (09:41)
[2018-11-15] MEDS: CLOPIDOGREL BISULFATE 75 MG TABLET PO SCH (09:41)
[2018-11-15] MEDS: PANTOPRAZOLE SODIUM 40 MG TABLET.DR PO SCH (09:41)
[2018-11-15] MEDS: GLIMEPIRIDE 1 MG TABLET PO SCH (09:41)
[2018-11-15] MEDS: AMLODIPINE BESYLATE 10 MG TABLET PO SCH (09:41)
[2018-11-15] MEDS: DONEPEZIL HCL 5 MG TABLET PO SCH (09:41)
[2018-11-15] MEDS: ASPIRIN 81 MG TABLET, ENT COATED PO SCH (09:41)
[2018-11-15] MEDS: SACUBITRIL/VALSARTAN 49 MG/51 MG TABLET PO SCH (09:42)
[2018-11-15] MEDS: METOPROLOL SUCCINATE 25 MG TAB.SR.24H PO SCH (09:42)
[2018-11-15] MEDS ORDERED: MULTIVITAMINS W-IRON TABLET, CHEWABLE PO SCH (10:00)
[2018-11-15] MEDS ORDERED: FUROSEMIDE 40 MG TABLET PO SCH (10:00)
[2018-11-15 12:19] LABS: ARTERIAL BLOOD BASE EXCESS 5.5 mmol/L; ARTERIAL BLOOD H2CO3 1.39 mmol/L (1.05-1.35); ARTERIAL BLOOD HCO3 30.5 mmol/L (20-24); ARTERIAL BLOOD O2 SATURATION 96.1 % (94-98); ARTERIAL BLOOD PCO2 46.1 mmHg (35-45); ARTERIAL BLOOD PH 7.44 (7.35-7.45); ARTERIAL BLOOD PO2 79.7 mmHg (80-100); ARTERIAL BLOOD TOTAL CO2 31.9 mmol/L (23-27)
[2018-11-15 12:20] LABS: ARTERIAL BLOOD FIO2 5
[2018-11-15 15:14] VITALS: BP 131/53
--- NOTE | 2018-11-18 18:08 | PDOC DISCHARGE SUMMARY ---
General - Admit/Disc Date/PCP Admission Date/Primary Care Provider: 11/12/18 12:48 SHARYN JAFFE MD Discharge Date: 11/15/18 - Discharge Diagnosis (1) Acute on chronic systolic (congestive) heart failure Is this a current diagnosis for this admission?: Yes Summary: Acute exacerbation has resolved. The patient was admitted with dyspnea, orthopnea, hypoxia, and elevated proBNP. proBNP remains elevated 2830, although should be reviewed in light of his obesity and CKD 3. The patient is now maintaining oxygen saturations at rest on his baseline oxygen requirement and is comfortable lying supine. Recommend patietn continue amlodipine, hydralazine, metoprolol, Entresto, home dose furosemide, aspirin, Plavix, and statin therapy. Dietary compliance encouraged. (2) Chronic kidney disease, stage III (moderate) Is this a current diagnosis for this admission?: Yes Summary: Overall stable; creatinine 1.30-> 1.62-> 1.5 Does appear that his baseline is 1.6-2.0. (3) Anemia Is this a current diagnosis for this admission?: Yes Summary: Hemoglobin is stable at 8.8. No evidence of active bleeding at this time. Continue multivitamin with iron. (4) Coronary artery disease Is this a current diagnosis for this admission?: Yes Summary: Patient denies active chest pain. Continue aspirin and Plavix. Continue antihypertensives as above. (5) Diabetes mellitus type 2 in obese Is this a current diagnosis for this admission?: Yes Summary: Continue home dose Amaryl. (6) Hypothyroidism Is this a current diagnosis for this admission?: Yes Summary: Continue home dose Synthroid (7) Respiratory distress Is this a current diagnosis for this admission?: Yes Summary: Resolved; secondary to #1. Patient is now maintaining oxygen saturations on his baseline oxygen requirement of 2 to 3 L/min. (8) Hyperkalemia Is this a current diagnosis for this admission?: Yes Summary: Resolved. - Additional Information Resuscitation Status: Full Code Discharge Diet: Cardiac, Diabetic Discharge Activity: Activity As Tolerated, Balance Activity w/Rest, Weigh Daily Prescriptions: Prednisone [Deltasone 20 mg Tablet] 60 mg PO DAILY #9 tablet Multivitamins W-Iron [Flintstones Chewable Multivit W/Fe Tab] 2 tab PO DAILY #30 tab.chew Metoprolol Succinate [Toprol Xl 25 mg Tab.sr] 25 mg PO Q12 #60 tab.sr.24h Home Medications: Furosemide [Lasix 80 mg Tablet] 40 mg PO QAM 05/22/11 Hydralazine HCl [Apresoline 50 mg Tablet] 50 mg PO Q8 05/22/11 Potassium Chloride [Klor-Con 10 Meq Capsule ER] 20 meq PO QAM 05/22/11 Pravastatin Sodium [Pravachol] 40 mg PO QHS 05/22/11 Amlodipine Besylate [Norvasc 10 mg Tablet] 10 mg PO QAM 05/16/12 Aspirin [Ecotrin] 81 mg PO DAILY 04/24/15 Clopidogrel Bisulfate [Clopidogrel] 75 mg PO QAM 04/24/15 Cyanocobalamin (Vitamin B-12) [Vitamin B-12 100 mcg Tablet] 1,000 mg PO DAILY 04/24/15 Donepezil HCl 10 mg PO QAM 04/24/15 Finasteride 5 mg PO QAM 04/24/15 Glimepiride [Amaryl] 2 mg PO [id number] 04/24/15 Tamsulosin HCl 0.4 mg PO PCSUPPER 04/24/15 Sacubitril/Valsartan [Entresto 49 mg-51 mg Tablet] 1 each PO BID #60 tablet 09/01/15 Levothyroxine Sodium 100 mcg PO Q6AM 11/12/18 Pantoprazole Sodium [Protonix [address] Tablet] 40 mg PO QAM 11/12/18 Umeclidinium Brm/Vilanterol Tr [Anoro Ellipta 62.5-25 Mcg INH] 1 each IH DAILY 0 11/12/18 Acetaminophen [Tylenol 325 mg Tablet] 650 mg PO Q4HP PRN tablet 11/15/18 Metoprolol Succinate [Toprol Xl 25 mg Tab.sr] 25 mg PO Q12 #60 tab.sr.24h 11/15/18 Multivitamins W-Iron [Flintstones Chewable Multivit W/Fe Tab] 2 tab PO DAILY #30 tab.chew 11/15/18 Prednisone [Deltasone 20 mg Tablet] 60 mg PO DAILY #9 tablet 11/15/18 History of Present Illness History of Present Illness: H&P per Stephen Dunaway: Santa MIXON is a 78 year old male who presents the ER with shortness of breath. Patient has a history of congestive heart failure unknown type at this time but I suspect its systolic nature as patient has AICD. We will get all records from [place]. Patient is on BiPAP in the ER at this time breathing much easier. Chest x-ray shows acute on chronic congestive heart failure. Patient did take at home medication include Lasix 80 minutes p.o. daily prior to arrival all active is been aggravating factor. Physical Exam Vital Signs: Temp Pulse Resp BP Pulse Ox 97.3 F 72 16 131/53 H 97 11/15/18 15:11 11/15/18 15:11 11/15/18 15:11 11/15/18 15:11 11/15/18 15:11 General appearance: PRESENT: no acute distress, cooperative, obese, well- developed, well-nourished Head exam: PRESENT: atraumatic, normocephalic Eye exam: PRESENT: conjunctiva pink, EOMI, PERRLA. ABSENT: scleral icterus Ear exam: PRESENT: normal external ear exam Mouth exam: PRESENT: moist, tongue midline Neck exam: ABSENT: carotid bruit, JVD, lymphadenopathy, thyromegaly Respiratory exam: PRESENT: clear to auscultation leann, symmetrical, unlabored, other - Supplemental oxygen at 3 L/min. ABSENT: rales, rhonchi, wheezes Cardiovascular exam: PRESENT: RRR. ABSENT: diastolic murmur, rubs, systolic murmur Pulses: PRESENT: normal dorsalis pedis pul Vascular exam: PRESENT: normal capillary refill GI/Abdominal exam: PRESENT: normal bowel sounds, soft. ABSENT: distended, guarding, mass, organolmegaly, rebound, tenderness Rectal exam: PRESENT: deferred Extremities exam: PRESENT: full ROM. ABSENT: calf tenderness, clubbing, pedal edema Musculoskeletal exam: PRESENT: ambulatory Neurological exam: PRESENT: alert, awake, oriented to person, oriented to place, oriented to time, oriented to situation, CN II-XII grossly intact, other - Intermittent forgetfulness/confusion, pleasant, conversational.. ABSENT: motor sensory deficit Psychiatric exam: PRESENT: appropriate affect, normal mood. ABSENT: homicidal ideation, suicidal ideation Skin exam: PRESENT: dry, intact, warm. ABSENT: cyanosis, rash Results Laboratory Results: 11/15/18 05:05 11/15/18 05:05 11/12/18 11/12/18 11/13/18 09:58 09:58 04:48 Creatine Kinase 54 L CK-MB (CK-2) 1.22 Troponin I < 0.012 NT-Pro-B Natriuret Pep 1620 H 2830 H Impressions: Chest X-Ray 11/12/18 09:55 IMPRESSION: CHF. Qualifiers - * PATIENT BEING DISCHARGED WITH ANY OF THE FOLLOWING DIAGNOSIS: No Acute Heart Failure - Is this a Heart Failure Patient?: Yes Documentation of LVEF assessment?: Planned for after discharge LVEF < 40%?: No- if no continue to question #3 a) Discharged on ACEI?: N/A Discharged on ARNI b) Discharges on ARB?: N/A-Discharged on ARNI c) Discharged on ARNI?: Yes d) Discharged on evidence-based Beta latonya(carvedilol, sustained release me toprolol succinate, or bisoprolol)?: Yes 3. Anticoagulant therapy for permanect/persistent/paraoxysmal Afib or Aflutter: N/A Plan Discharge Plan: The patient is discharged home into the care of family members. Have arranged for home health nursing, physical therapy, Occupational Therapy, aide and social media content manager services. Patient is instructed to follow-up with his primary care provider within 1 week. We will recommend consideration of an overnight sleep study. Follow-up with established debug technician as scheduled. He is encouraged to follow a cardiac diet, weigh himself daily, and report any weight gain of greater than 2 pounds to his primary care provider. They are encouraged to return to the emergency department as needed for any concerning symptoms. Time Spent: Greater than 30 Minutes
== END 2018-11-15 16:47 | disposition home or self-care (01) | DRG 291 ==
LOC: ER 09:37 → EH 12:48 → 3N 15:54
PROVIDERS: ADMIT Internal Medicine; ATTEND Internal Medicine
PROC: 5A09457 Assistance with Respiratory Ventilation, 24-96 Consecutive Hours, Continuous Positive Airway Pressure (ICD-10-PCS; principal; 2018-11-12)
DX: I13.0 Hypertensive heart and chronic kidney disease with heart failure and stage 1 through stage 4 chronic kidney disease, or unspecified chronic kidney disease (principal); I50.23 Acute on chronic systolic (congestive) heart failure; N18.3 Chronic kidney disease, stage 3 (moderate); E11.22 Type 2 diabetes mellitus with diabetic chronic kidney disease; D63.1 Anemia in chronic kidney disease; I25.10 Atherosclerotic heart disease of native coronary artery without angina pectoris; E03.9 Hypothyroidism, unspecified; E87.5 Hyperkalemia; Z96.653 Presence of artificial knee joint, bilateral; K21.9 Gastro-esophageal reflux disease without esophagitis; E78.00 Pure hypercholesterolemia, unspecified; J44.9 Chronic obstructive pulmonary disease, unspecified; E66.01 Morbid (severe) obesity due to excess calories; R09.02 Hypoxemia; I25.2 Old myocardial infarction; Z79.899 Other long term (current) drug therapy; Z79.82 Long term (current) use of aspirin; Z79.52 Long term (current) use of systemic steroids; Z95.810 Presence of automatic (implantable) cardiac defibrillator; Z95.5 Presence of coronary angioplasty implant and graft; Z87.891 Personal history of nicotine dependence
CPT/HCPCS: 36415; 36600; 71045; 80048; 80053; 81001; 82550; 82553; 82803; 82962; 83605; 83735; 83880; 84100; 84484; 85025; 87040; 93005; 93010; 94640; 94660; 94799; 96374; 96375; 99291; J1644; J1815; J1940; J2920; J2930; J3490; J7512; J7620

== ENCOUNTER → 2018-12-12 | Outpatient (CLI) | payer MEDICARE ==
--- NOTE | 2018-12-12 15:28 | RADIOLOGY REPORT (SQ) ---
EXAM DESCRIPTION: CT CHEST WITHOUT COMPLETED DATE/TIME: 12/12/2018 10:03 am REASON FOR STUDY: COPD (J44.9) J44.9 CHRONIC OBSTRUCTIVE PULMONARY DISEASE, UNSPECIFIED COMPARISON: CT of the chest with contrast 03/26/2011. TECHNIQUE: CT scan performed of the chest without intravenous contrast. Images reviewed with lung, soft tissue and bone windows. Reconstructed coronal and sagittal MPR images reviewed. All images st ored on PACS. All CT scanners at this facility use dose modulation, iterative reconstruction, and/or weight based d osing when appropriate to reduce radiation dose to as low as reasonably achievable (ALARA). [facility]: Dose Right [facility]: CareDose [facility]: Dose Right [facility]: Teradose 4D [facility]: [employer] RADIATION DOSE: CT Rad equipment meets quality standard of care and radiation dose reduction techniq ues were employed. CTDIvol: 19.5 mGy. DLP: 790 mGy-cm. mGy. LIMITATIONS: No technical limitations. FINDINGS: LUNGS AND PLEURA: The trachea and cysts main bronchi are patent ; the saber-sheath appeara nce of the intrathoracic appearance of the trachea, the bronchial wall thickening, and the mosaic att enuation of the lung parenchyma are indicative of COPD. There is no bronchiectasis or segmental mucu s plugging. The patchy opacities in the lower lobes are presumed to represent areas of atelectasis. There is no alveolar consolidation, pleural effusion or pneumothorax. There is no solid, noncalcifi ed pulmonary nodule or mass. HILAR AND MEDIASTINAL STRUCTURES: There are nonenlarged right upper paratracheal, AP window, prevascu lar, right lower paratracheal, and subcarinal lymph nodes that measure up to 9 mm in short axis diame ter. HEART AND VASCULAR STRUCTURES: There is a variant 2 vessel arch with a common origin of the brachioce phalic and left common carotid artery cement there is also a variant retropharyngeal course of the co mmon carotid artery seen. There is no aneurysmal dilatation of the thoracic aorta or evidence of an intramural hematoma. The left ventricle is enlarged. There are ICD leads in place that terminate wit hin the coronary sinus, right atrium and right ventricle. UPPER ABDOMEN: 3.9 x 2 cm calculus within the gallbladder lumen, atherosclerotic calcification of the pancreatic artery, and hiatal hernia. THYROID AND OTHER SOFT TISSUES: No masses or adenopathy. BONES: Chronic fracture deformities of several bilateral ribs and findings of DISH in the thoracic sp ine. There is no acute fracture. HARDWARE: ICD in place. OTHER: No other findings. IMPRESSION: 1. Findings of COPD including saber-sheath appearance of the intrathoracic appearance of the trachea, the bronchial wall thickening, and the mosaic attenuation of the lung parenchyma. Ther e is no acute intrathoracic abnormality. 2. Cholelithiasis and hiatal hernia. TECHNICAL DOCUMENTATION: JOB ID: [id number] Quality ID # [id number]: Final reports with documentation of one or more dose reduction techniques (e.g., Au tomated exposure control, adjustment of the mA and/or kV according to patient size, use of iterative reconstruction technique) 2010 [employer]- All Rights Reserved Reading location - IP/workstation name: [email or web address]
== END ==
LOC: RAD 09:39
PROVIDERS: ATTEND Registered Nurse
DX: J44.9 Chronic obstructive pulmonary disease, unspecified (principal)
CPT/HCPCS: 71250

== ENCOUNTER 2018-12-23 06:02 | Observation (INO) | payer MEDICARE ==
[2018-12-23 08:09] LABS: VENOUS BLOOD BASE EXCESS 2.4 mmol/L; VENOUS BLOOD PCO2 47.3 mmHg (35-63); VENOUS BLOOD PH 7.39 (7.30-7.42)
[2018-12-23 08:10] LABS: ABSOLUTE EOSINOPHILS # (AUTO) 0.1 10^3/uL (0.0-0.6); ABSOLUTE MONOCYTES (AUTO) 0.5 10^3/uL (0.1-1.4); ABSOLUTE NEUT (AUTO) 6.8 10^3/uL (1.7-8.2); BASOPHILS % (AUTO) 0.5 % (0-2); EOSINOPHILS % (AUTO) 0.9 % (0-6); HEMATOCRIT 32.5 % (37.9-51.0); HEMOGLOBIN 10.1 g/dL (13.5-17.0); LYMPHOCYTES % (AUTO) 11.5 % (13-45); MEAN CORPUSCULAR HEMOGLOBIN 24.9 pg (27.0-33.4); MEAN CORPUSCULAR VOLUME 80 fl (80-97); PLATELET COUNT 219 10^3/uL (150-450); RED BLOOD COUNT 4.04 10^6/uL (4.35-5.55); RED CELL DISTRIBUTION WIDTH 19.2 % (11.5-14.0); SEGMENTED NEUTROPHILS % (AUTO) 81.1 % (42-78); TOTAL CELLS COUNTED % (AUTO) 100 %; WHITE BLOOD COUNT 8.4 10^3/uL (4.0-10.5)
--- NOTE | 2018-12-23 08:22 | RADIOLOGY REPORT (SQ) ---
EXAM DESCRIPTION: CHEST SINGLE VIEW COMPLETED DATE/TIME: 12/23/2018 8:05 am REASON FOR STUDY: fall, confused, COPD, dementia COMPARISON: 11/12/2018. EXAM PARAMETERS: NUMBER OF VIEWS: One view. TECHNIQUE: Single frontal radiographic view of the chest acquired. RADIATION DOSE: NA LIMITATIONS: None. FINDINGS: LUNGS AND PLEURA: No opacities, masses or pneumothorax. No pleural effusion. MEDIASTINUM AND HILAR STRUCTURES: No masses. Contour normal. HEART AND VASCULAR STRUCTURES: Cardiomegaly unchanged. Normal vasculature. BONES: No acute findings. HARDWARE: Defibrillator. OTHER: No other significant finding. IMPRESSION: STABLE CARDIOMEGALY. NO ACUTE RADIOGRAPHIC FINDING IN THE CHEST. TECHNICAL DOCUMENTATION: JOB ID: [id number] [employer]- All Rights Reserved Reading location - IP/workstation name: [email or web address]
[2018-12-23 08:29] LABS: ALBUMIN 3.9 g/dL (3.5-5.0); ALKALINE PHOSPHATASE 63 U/L (38-126); ANION GAP 10 (5-19); ASPARTATE AMINO TRANSFERASE 19 U/L (17-59); BILIRUBIN,DIRECT 0.2 mg/dL (0.0-0.4); BILIRUBIN,TOTAL 0.4 mg/dL (0.2-1.3); BLOOD UREA NITROGEN 38 mg/dL (7-20); CALCIUM 9.5 mg/dL (8.4-10.2); CARBON DIOXIDE 27 mmol/L (22-30); CHLORIDE 105 mmol/L (98-107); CREATINE KINASE 94 U/L (55-170); GLUCOSE 156 mg/dL (75-110); POTASSIUM 4.9 mmol/L (3.6-5.0); TOTAL PROTEIN 6.8 g/dL (6.3-8.2)
[2018-12-23 08:40] LABS: CREATINE KINASE MB 1.45 ng/mL (<4.55); TROPONIN I 0.018 ng/mL
--- NOTE | 2018-12-23 08:50 | ER Document Report ---
Entered by RICCARDO GREEN SCRIBE 12/23/18 0713 Acting as scribe for:ROSI SEGOVIA MD ED Fall - General Chief Complaint: Fall Stated Complaint: FALL Time Seen by Provider: 12/23/18 07:06 Mode of Arrival: Medic Information source: Relative Notes: Patient is an 78-year-old male with Alzheimer's disease who presents to the emergency department today secondary to a fall that occurred at some point between 11 PM last night and 0430 this morning. Spouse states the last time she saw the patient was when they went to bed around 11:00 last night. Patient states she heard a noise this morning and thought she heard her name being called, she went and found the patient in the hallway on the ground. states she thinks the patient was trying to get to the bathroom. Patient uses a walker at baseline. Patient is normally able to converse somewhat however today he is more confused than normal, not conversing, only repeats words such as "oh Lord" and "honey". History is limited secondary to the patient's medical condition. Patient was admitted from 11/12 to 11/15 for CHF exacerbation. At that time the patient was able to provide most of the history with blanks being filled in by the which is a ji contrast to today's presentation. TRAVEL OUTSIDE OF THE [place] IN LAST 30 DAYS: No - Related data Allergies/Adverse Reactions: No Known Allergies Allergy (Verified 12/23/18 06:20) Past Medical History - General Information source: Patient - Social History Smoking Status: Former Smoker Cigarette use (# per day): No Chew tobacco use (# tins/day): No Smoking Education Provided: No Family History: Reviewed & Not Pertinent Patient has suicidal ideation: No Patient has homicidal ideation: No - Past Medical History Cardiac Medical History: Reports: Hx Congestive Heart Failure, Hx Coronary Artery Disease, Hx Heart Attack, Hx Hypercholesterolemia, Hx Hypertension Pulmonary Medical History: Reports: Hx COPD Denies: Hx Tuberculosis Endocrine Medical History: Reports: Hx Diabetes Mellitus Type 2, Hx Hypothyroidism Renal/ Medical History: Reports: Hx Benign Prostatic Hyperplasia, Hx Renal Insufficiency GI Medical History: Reports: Hx Gastroesophageal Reflux Disease Musculoskeletal Medical History: Reports Hx Arthritis Past Surgical History: Reports: Hx Cardiac Catheterization, Hx Coronary Stent, Hx Orthopedic Surgery - bilateral knee replacement, Hx Pacemaker - defib - Immunizations Immunizations up to date: No Hx Diphtheria, Pertussis, Tetanus Vaccination: No Review of Systems - Review of Systems -: Yes ROS unobtainable due to patient's medical condition - History of Alzheimer's, confused. Being given by spouse at bedside. Constitutional: See HPI, Other - Found on floor, unknown downtime EENT: No symptoms reported Cardiovascular: No symptoms reported Respiratory: No symptoms reported Gastrointestinal: No symptoms reported Genitourinary: No symptoms reported Male Genitourinary: No symptoms reported Musculoskeletal: No symptoms reported Skin: No symptoms reported Hematologic/Lymphatic: No symptoms reported Neurological/Psychological: No symptoms reported -: Yes All other systems reviewed and negative Physical Exam - Vital signs Vitals: Temp Pulse Resp BP Pulse Ox 97.4 F 109 H 22 H 144/81 H 89 L 12/23/18 06:05 12/23/18 06:05 12/23/18 06:05 12/23/18 06:05 12/23/18 06:05 - Notes Notes: Physical Exam: General: Confused. Unaware of surroundings. Thrashes around bed throughout exam. HEENT: Normocephalic. Atraumatic. PERRL. Extraocular movements intact. Oropharynx clear. Dry oral mucosa. Neck: Supple. Non-tender. Respiratory: No respiratory distress. Clear and equal breath sounds bilaterally. Cardiovascular: Tachycardic, regular rhythm. Abdominal: Morbidly obese. Non-tender. No distension. Normal Bowel Sounds. Back: No gross abnormalities. Extremities: Moves all four extremities. Upper extremities: Normal inspection. Normal ROM. Lower extremities: Chronic venous stasis changes, thickened skin, trace to 1+ edema bilaterally. Neurological: Confused. Unaware of surroundings. Rolls back and forth in the bed throughout exam repeating "honey" and "oh lord". answers no questions and does not converse at all. Skin: see lower extremity exam Course - Re-evaluation Re-evalutation: 12/23/18 09:39 At this time the patient is sitting up, conversing with his spouse. He is much more alert and oriented. He does not know where he is, does not know what b uilding this is, and based on his evaluation in October, and talking with his spouse, he continues to be somewhat confused. His skin is a little warm and sweaty. His abdomen shows some left lower quadrant tenderness. Lab work does not provide any suggestion for why he was so confused when he first came in. We will get a CT scan of the head to rule out injury from his fall, and CT the abdomen and pelvis to exclude diverticulitis or other inflammatory process. - Vital Signs Vital signs: Temp Pulse Resp BP Pulse Ox 98.4 F 85 19 145/80 H 95 12/23/18 13:53 12/23/18 13:53 12/23/18 13:53 12/23/18 13:53 12/23/18 11:30 - Laboratory Result Diagrams: 12/23/18 07:50 12/23/18 07:50 Laboratory results interpreted by me: 12/23/18 12/23/18 12/23/18 07:50 07:50 08:30 RBC 4.04 L Hgb 10.1 L Hct 32.5 L MCH 24.9 L MCHC 31.0 L RDW 19.2 H Lymph % (Auto) 11.5 L Seg Neutrophils % 81.1 H BUN 38 H Creatinine 2.16 H Est GFR ( Amer) 36 L Est GFR (MDRD) Non-Af 30 L Glucose 156 H Urine Protein 30 H Urine Ketones TRACE H Urine Blood MODERATE H - Diagnostic Test Radiology reviewed: Image reviewed, Reports reviewed - CT scan of the head shows chronic changes with nothing acute. CT scan abdomen pelvis shows a large gallstone, no other abnormalities. - EKG Interpretation by Me EKG shows normal: [place], Intervals, QRS Complexes, ST-T Waves Rate: Tachycardia - 105 Rhythm: Other - Ventricular paced rhythm When compared to previous EKG there are: No significant change - Consults RONALD Desai Time consulted: 11:35 Consulted provider: will come to ER Critical Care Note - Critical Care Note Total time excluding time spent on procedures (mins): 35 Discharge - Discharge Clinical Impression: Confusion Fall Qualifiers: Encounter type: initial encounter Qualified Code(s): W19.XXXA - Unspecified fall, initial encounter Condition: Stable Disposition: ADMITTED OBSERVATION Admitting Provider: Alecia (Hospitalist) Unit Admitted: Medical Floor Scribe Attestation: 12/23/18 09:54 I personally performed the services described in the documentation, reviewed and edited the documentation which was dictated to the scribe in my presence, and it accurately records my words and actions. I personally performed the services described in the documentation, reviewed and edited the documentation which was dictated to the scribe in my presence, and it accurately records my words and actions.
[2018-12-23 08:53] LABS: APPEARANCE,URINE CLEAR; BILIRUBIN,URINE NEGATIVE (NEGATIVE); COLOR,URINE YELLOW; GLUCOSE, URINE NEGATIVE (NEGATIVE); KETONES,URINE TRACE mg/dL (NEGATIVE); LEUKOCYTE ESTERASE,URINE NEGATIVE (NEGATIVE); NITRITE,URINE NEGATIVE (NEGATIVE); PROTEIN,URINE 30 mg/dL (NEGATIVE); URINE SPECIFIC GRAVITY 1.016; UROBILINOGEN,URINE NEGATIVE mg/dL (<2.0)
--- NOTE | 2018-12-23 11:07 | RADIOLOGY REPORT (SQ) ---
EXAM DESCRIPTION: CT HEAD WITHOUT COMPLETED DATE/TIME: 12/23/2018 11:00 am REASON FOR STUDY: Fall, confusion, LLQ abd pain COMPARISON: 12/15/2016. TECHNIQUE: Axial images acquired through the brain without intravenous contrast. Images reviewed wi th bone, brain and subdural windows. Additional sagittal and coronal reconstructions were generated. Images stored on PACS. All CT scanners at this facility use dose modulation, iterative reconstruction, and/or weight based d osing when appropriate to reduce radiation dose to as low as reasonably achievable (ALARA). [facility]: Dose Right [facility]: CareDose [facility]: Dose Right [facility]: Teradose 4D [facility]: Smart [employer] RADIATION DOSE: CT Rad equipment meets quality standard of care and radiation dose reduction techniq ues were employed. CTDIvol: 53.2 mGy. DLP: 911 mGy-cm. mGy. LIMITATIONS: Motion artifact. FINDINGS: VENTRICLES: Prominent. CEREBRUM: No masses. No hemorrhage. No midline shift. Areas of low density in the white matter mos t likely due to chronic micro-vascular ischemic change. No evidence for acute infarction. CEREBELLUM: No masses. No hemorrhage. No alteration of density. No evidence for acute infarction. EXTRAAXIAL SPACES: Mild age-related involutional change. No fluid collections. No masses. ORBITS AND GLOBE: No intra- or extraconal masses. Normal contour of globe without masses. CALVARIUM: No fracture. PARANASAL SINUSES: No fluid or mucosal thickening. SOFT TISSUES: No mass or hematoma. OTHER: No other significant finding. IMPRESSION: MILD CHRONIC CHANGES OF ATROPHY AND MICROVASCULAR ISCHEMIA. NO ACUTE PROCESS. EVIDENCE OF ACUTE STROKE: NO. TECHNICAL DOCUMENTATION: JOB ID: [id number] Quality ID # [id number]: Final reports with documentation of one or more dose reduction techniques (e.g., Au tomated exposure control, adjustment of the mA and/or kV according to patient size, use of iterative reconstruction technique) 2010 [employer]- All Rights Reserved Reading location - IP/workstation name: [email or web address]
--- NOTE | 2018-12-23 11:13 | RADIOLOGY REPORT (SQ) ---
EXAM DESCRIPTION: CT ABD/PELVIS NO ORAL OR IV COMPLETED DATE/TIME: 12/23/2018 10:59 am REASON FOR STUDY: Fall, confusion, LLQ abd pain COMPARISON: 03/31/2012. TECHNIQUE: CT scan of the abdomen and pelvis performed without intravenous or oral contrast. Images reviewed with lung, soft tissue, and bone windows. Reconstructed coronal and sagittal MPR images revi ewed. All images stored on PACS. All CT scanners at this facility use dose modulation, iterative reconstruction, and/or weight based d osing when appropriate to reduce radiation dose to as low as reasonably achievable (ALARA). [facility]: Dose Right [facility]: CareDose [facility]: Dose Right [facility]: Teradose 4D [facility]: Smart [employer] RADIATION DOSE: CT Rad equipment meets quality standard of care and radiation dose reduction techniq ues were employed. CTDIvol: 14.4 mGy. DLP: 889 mGy-cm.mGy. LIMITATIONS: None. FINDINGS: LOWER CHEST: No significant findings. No nodules or infiltrates. NON-CONTRASTED LIVER, SPLEEN, ADRENALS: Evaluation limited by lack of IV contrast. No identified sign ificant masses. PANCREAS: No masses. No peripancreatic inflammatory changes. GALLBLADDER: Large gallstone. No inflammatory changes to suggest cholecystitis. RIGHT KIDNEY AND URETER: Low-attenuation cortical lesion, likely a cyst. Assessment limited by lack o f IV contrast. No significant calcifications. No hydronephrosis or hydroureter. LEFT KIDNEY AND URETER: No suspicious masses. Assessment limited by lack of IV contrast. No signifi cant calcifications. No hydronephrosis or hydroureter. AORTA AND RETROPERITONEUM: No aneurysm. No retroperitoneal masses or adenopathy. BOWEL AND PERITONEAL CAVITY: No obvious masses or inflammatory changes. No free fluid. APPENDIX: Normal. PELVIS, BLADDER, AND ABDOMINAL WALL:No abnormal masses. No free fluid. Bladder normal. BONES: No significant findings. Degenerative changes in the spine. OTHER: No other significant finding. IMPRESSION: 1. GALLSTONE. NO APPARENT ACUTE FINDINGS. 2. PROBABLE CORTICAL CYST IN THE RIGHT KIDNEY. 3. NO OTHER SIGNIFICANT OR ACUTE PROCESS IN THE ABDOMEN OR PELVIS. COMMENT: Quality ID # [id number]: Final reports with documentation of one or more dose reduction techniques (e.g., Automated exposure control, adjustment of the mA and/or kV according to patient size, use of iterative reconstruction technique) TECHNICAL DOCUMENTATION: JOB ID: [id number] [employer]- All Rights Reserved Reading location - IP/workstation name: [email or web address]
[2018-12-23] MEDS ORDERED: ONDANSETRON HCL INJ/PF 4 MG/2 ML SDV IV PRN (12:25)
[2018-12-23] MEDS ORDERED: ACETAMINOPHEN 325 MG TABLET PO PRN (12:25)
[2018-12-23] MEDS ORDERED: MAGNESIUM HYDROXIDE SUSP 30 ML UDCUP PO PRN (12:25)
[2018-12-23] MEDS ORDERED: ONDANSETRON 4 MG TAB.RAPDIS PO PRN (12:25)
--- NOTE | 2018-12-23 12:49 | PDOC H&P ---
History of Present Illness Admission Date/PCP: 12/23/18 12:18 SHARYN JAFFE MD History of Present Illness: Santa MIXON is a 78 year old male who was just discharged home from the hospital on 11/12/2018 for congestive heart failure, chronic kidney disease, EMEA, coronary artery disease, diabetes, hypothyroidism, respiratory distress distress, hyperkalemia, dementia On this occasion the found him down on the bathroom floor around 4AM he was unable to get up on his own therefore she called EMS. He had Alzheimer's now for about the last 5 years and is been getting worse for the last year or 2. Still lives at home with her.. States she has good days and bad days where he is very demented and then other days where he is very lucid. She is not surprised by his lack of orientation today and or his confusion. Patient has no pain anywhere. Work-up in the ER so far is negative for infection or sepsis.. She will be admitted overnight in observation status we will do the routine labs and work-up. If no change at worse will discharge in the morning... She like to go to [facility]ational in the morning and then take him home after lunch.. He is not concerned at all about his behavior today. Medically stable Past Medical History Cardiac Medical History: Reports: Congestive Heart Failure, Coronary Artery Disease, Myocardial Infarction, Hyperlipidema, Hypertension Pulmonary Medical History: Reports: Chronic Obstructive Pulmonary Disease (COPD) Denies: Tuberculosis Endocrine Medical History: Reports: Diabetes Mellitus Type 2, Hypothyroidism GI Medical History: Reports: Gastroesophageal Reflux Disease Musculoskeltal Medical History: Reports: Arthritis Psychiatric Medical History: Denies: Depression Past Surgical History Past Surgical History: Reports: Cardiac Catheterization, Coronary Stent, Orthopedic Surgery - bilateral knee replacement, Pacemaker - defib Social History Smoking Status: Former Smoker Frequency of Alcohol Use: None Hx Recreational Drug Use: No Drugs: None Hx Prescription Drug Abuse: No - Advance Directive Resuscitation Status: Full Code Family History Family History: Reviewed & Not Pertinent Parental Family History Reviewed: No Children Family History Reviewed: No Sibling(s) Family History Reviewed.: No Medication/Allergy Allergies/Adverse Reactions: No Known Allergies Allergy (Verified 12/23/18 06:20) Review of Systems ROS unobtainable: Due to mental status, Other - Was given by the Constitutional: ABSENT: chills, fever(s), headache(s), weight gain, weight loss Respiratory: ABSENT: cough, hemoptysis Gastrointestinal: ABSENT: abdominal pain, constipation, diarrhea, hematemesis, hematochezia, nausea, vomiting Neurological: PRESENT: confusion, memory loss Psychiatric: ABSENT: anxiety, depression, homidical ideation, suicidal ideation Physical Exam Vital Signs: Temp Pulse Resp BP Pulse Ox 98.2 F 109 H 15 146/74 H 95 12/23/18 09:01 12/23/18 06:05 12/23/18 11:30 12/23/18 11:30 12/23/18 11:30 Intake & Output 12/22/18 12/23/18 12/24/18 06:59 06:59 06:59 Weight 127.3 kg General appearance: PRESENT: no acute distress, other - Pleasant smiling talking but confused Respiratory exam: PRESENT: clear to auscultation leann. ABSENT: rales, rhonchi, wheezes Cardiovascular exam: PRESENT: RRR. ABSENT: diastolic murmur, rubs, systolic murmur Neurological exam: PRESENT: altered Psychiatric exam: PRESENT: appropriate affect, normal mood. ABSENT: homicidal ideation, suicidal ideation Results Laboratory Results: 12/23/18 07:50 12/23/18 07:50 12/23/18 12/23/18 12/23/18 07:50 07:50 07:50 WBC 8.4 RBC 4.04 L Hgb 10.1 L Hct 32.5 L MCV 80 MCH 24.9 L MCHC 31.0 L RDW 19.2 H Plt Count 219 Seg Neutrophils % 81.1 H VBG pH VBG pCO2 VBG HCO3 VBG Base Excess Sodium 141.7 Potassium 4.9 Chloride 105 Carbon Dioxide 27 Anion Gap 10 BUN 38 H Creatinine 2.16 H Est GFR ( Amer) 36 L Glucose 156 H Lactic Acid 1.1 Calcium 9.5 Magnesium 2.3 Total Bilirubin 0.4 AST 19 Alkaline Phosphatase 63 Total Protein 6.8 Albumin 3.9 Urine Color Urine Appearance Urine pH Ur Specific [place] Urine Protein Urine Glucose (UA) Urine Ketones Urine Blood Urine Nitrite Ur Leukocyte Esterase Urine WBC (Auto) Urine RBC (Auto) 12/23/18 12/23/18 07:50 08:30 WBC RBC Hgb Hct MCV MCH MCHC RDW Plt Count Seg Neutrophils % VBG pH 7.39 VBG pCO2 47.3 VBG HCO3 28.0 VBG Base Excess 2.4 Sodium Potassium Chloride Carbon Dioxide Anion Gap BUN Creatinine Est GFR ( Amer) Glucose Lactic Acid Calcium Magnesium Total Bilirubin AST Alkaline Phosphatase Total Protein Albumin Urine Color YELLOW Urine Appearance CLEAR Urine pH 7.0 Ur Specific [place] 1.016 Urine Protein 30 H Urine Glucose (UA) NEGATIVE Urine Ketones TRACE H Urine Blood MODERATE H Urine Nitrite NEGATIVE Ur Leukocyte Esterase NEGATIVE Urine WBC (Auto) 0 Urine RBC (Auto) 43 12/23/18 12/23/18 07:50 07:50 Creatine Kinase 94 CK-MB (CK-2) 1.45 Troponin I 0.018 Impressions: Chest X-Ray 12/23/18 07:13 IMPRESSION: STABLE CARDIOMEGALY. NO ACUTE RADIOGRAPHIC FINDING IN THE CHEST. Abdomen/Pelvis CT 12/23/18 09:38 IMPRESSION: 1. GALLSTONE. NO APPARENT ACUTE FINDINGS. 2. PROBABLE CORTICAL CYST IN THE RIGHT KIDNEY. 3. NO OTHER SIGNIFICANT OR ACUTE PROCESS IN THE ABDOMEN OR PELVIS. Head CT 12/23/18 09:38 IMPRESSION: MILD CHRONIC CHANGES OF ATROPHY AND MICROVASCULAR ISCHEMIA. NO ACUTE PROCESS. EVIDENCE OF ACUTE STROKE: NO. Assessment and Plan - Diagnosis (1) Confusion Is this a current diagnosis for this admission?: Yes (2) Fall Qualifiers: Encounter type: initial encounter Qualified Code(s): W19.XXXA - Unspecified fall, initial encounter Is this a current diagnosis for this admission?: Yes (3) Acute on chronic systolic (congestive) heart failure Is this a current diagnosis for this admission?: Yes (4) Diabetes mellitus type 2 in obese Is this a current diagnosis for this admission?: Yes (5) Hypertension Is this a current diagnosis for this admission?: Yes - Plan Summary Summary: 12/23/2018 Put patient in observation status tonight do the routine labs and CT head scan. Patient does not worsen we will discharge him in the morning. This appears to be his normal demented Alzheimer behavior - Time Time Spent with patient: 35 or more minutes
[2018-12-23] MEDS: HEPARIN SOD (PORCINE) 5,000 UNIT/ML 1 ML VIAL SUBCUT SCH ×2 (15:13→21:17)
[2018-12-23] MEDS: NORMAL SALINE 1000 ML 1,000 ML IV PRN (15:14)
[2018-12-23] MEDS ORDERED: DOCUSATE SODIUM 100 MG CAPSULE PO ONE (16:00)
[2018-12-23] MEDS: SACUBITRIL/VALSARTAN 49 MG/51 MG TABLET PO SCH (17:26)
[2018-12-23] MEDS: FUROSEMIDE 40 MG TABLET PO SCH (17:26)
[2018-12-23] MEDS: AMLODIPINE BESYLATE 10 MG TABLET PO SCH (17:26)
[2018-12-23] MEDS ORDERED: TAMSULOSIN HCL 0.4 MG CAP.SR.24H PO SCH (18:00)
--- NOTE | 2018-12-23 19:25 | EKG REPORT ---
SEVERITY:- ABNORMAL ECG - VENTRICULAR-PACED RHYTHM : Confirmed by: Keira Juan MD 23-Dec-2018 19:23:20
[2018-12-23] MEDS: METOPROLOL SUCCINATE 25 MG TAB.SR.24H PO SCH (21:14)
[2018-12-23] MEDS: FAMOTIDINE 20 MG TABLET PO SCH (21:14)
[2018-12-23] MEDS ORDERED: (PENDING PHARMACY ID) (Pravastatin Sodium [Pravachol] 40 MG) PO SCH (22:00)
[2018-12-23] MEDS ORDERED: (PENDING PHARMACY ID) (Donepezil Hcl [Aricept] 10 MG) PO SCH (22:00)
[2018-12-23] MEDS ORDERED: ATORVASTATIN CALCIUM 10 MG TABLET PO SCH (22:00)
[2018-12-23] MEDS ORDERED: DONEPEZIL HCL 5 MG TABLET PO SCH (22:00)
[2018-12-24] MEDS: NORMAL SALINE 1000 ML 1,000 ML IV PRN (00:54)
[2018-12-24] MEDS: HEPARIN SOD (PORCINE) 5,000 UNIT/ML 1 ML VIAL SUBCUT SCH ×2 (05:13→13:40)
[2018-12-24] MEDS ORDERED: LEVOTHYROXINE SODIUM 0.1 MG TABLET PO SCH (06:00)
[2018-12-24 06:52] LABS: ANION GAP 6 (5-19); BLOOD UREA NITROGEN 29 mg/dL (7-20); CALCIUM 9.1 mg/dL (8.4-10.2); CARBON DIOXIDE 28 mmol/L (22-30); CHLORIDE 107 mmol/L (98-107); GLUCOSE 99 mg/dL (75-110); POTASSIUM 4.3 mmol/L (3.6-5.0)
[2018-12-24] MEDS ORDERED: HYDRALAZINE HCL 50 MG TABLET PO SCH (10:00)
[2018-12-24] MEDS ORDERED: ASPIRIN 81 MG TABLET, ENT COATED PO SCH (10:00)
[2018-12-24] MEDS ORDERED: (PENDING PHARMACY ID) (Umeclidinium Brm/Vilanterol Tr [Anoro Ellipta 62.5-25 Mcg Inh] 1 PU IH SCH (10:00)
[2018-12-24] MEDS ORDERED: DOCUSATE SODIUM 100 MG CAPSULE PO SCH (10:00)
[2018-12-24] MEDS ORDERED: CYANOCOBALAMIN (VITAMIN B-12) 1,000 MCG TABLET PO SCH (10:00)
[2018-12-24] MEDS ORDERED: CLOPIDOGREL BISULFATE 75 MG TABLET PO SCH (10:00)
[2018-12-24] MEDS ORDERED: GLIMEPIRIDE 1 MG TABLET PO SCH (10:00)
[2018-12-24] MEDS ORDERED: FINASTERIDE 5 MG TABLET PO SCH (10:00)
--- NOTE | 2018-12-24 10:21 | PDOC DISCHARGE SUMMARY ---
Impression - Admit/DC Date/PCP Admission Date/Primary Care Provider: 12/23/18 12:18 SHARYN JAFFE MD Discharge Date: 12/24/18 - Discharge Diagnosis (1) Confusion Is this a current diagnosis for this admission?: Yes (2) Fall Is this a current diagnosis for this admission?: Yes (3) Acute on chronic systolic (congestive) heart failure Is this a current diagnosis for this admission?: Yes (4) Diabetes mellitus type 2 in obese Is this a current diagnosis for this admission?: Yes (5) Hypertension Is this a current diagnosis for this admission?: Yes - Assessment Summary: 12/23/2018 Put patient in observation status tonight do the routine labs and CT head scan. Patient does not worsen we will discharge him in the morning. This appears to be his normal demented Alzheimer behavior - Additional Information Resuscitation Status: Full Code Discharge Diet: As Tolerated Discharge Activity: Balance Activity w/Rest Referrals: SHARYN JAFFE MD [Primary Care Provider] - Follow up as needed Home Medications: Amlodipine Besylate [Norvasc 10 mg Tablet] 10 mg PO DAILY 12/23/18 Aspirin [Ecotrin 81 mg EC Tablet] 81 mg PO DAILY 12/23/18 Clopidogrel Bisulfate [Plavix 75 mg Tablet] 75 mg PO DAILY 12/23/18 Cyanocobalamin (Vitamin B-12) [Vitamin B-12 1000 mcg Tablet] 1,000 mcg PO DAILY 12/23/18 Donepezil HCl [Aricept] 10 mg PO QHS 12/23/18 Finasteride [Proscar] 5 mg PO DAILY 12/23/18 Furosemide [Lasix 40 mg Tablet] 40 mg PO BID 12/23/18 Glimepiride [Amaryl] 2 mg PO DAILY 12/23/18 Hydralazine HCl [Apresoline 50 mg Tablet] 50 mg PO DAILY 12/23/18 Levothyroxine Sodium [Synthroid 0.1 mg Tablet] 0.1 mg PO Q6AM 12/23/18 Metoprolol Succinate [Toprol Xl 25 mg Tab.sr] 25 mg PO Q12 12/23/18 Pantoprazole Sodium [Protonix [address] Tablet] 40 mg PO QHS 12/23/18 Potassium Chloride [Klor-Con M20] 20 meq PO BID 12/23/18 Pravastatin Sodium [Pravachol] 40 mg PO QHS 12/23/18 Sacubitril/Valsartan [Entresto 49 mg/51 mg Tablet] 1 tab PO BID 12/23/18 Tamsulosin HCl [Flomax 0.4 mg Cap.sr] 0.4 mg PO PCSUPPER 12/23/18 Umeclidinium Brm/Vilanterol Tr [Anoro Ellipta 62.5-25 Mcg INH] 1 puff IH DAILY 12/23/18 History of Present Illiness History of Present Illness: Santa MIOXN is a 78 year old male who was just discharged home from the hospital on 11/12/2018 for congestive heart failure, chronic kidney disease, EMEA, coronary artery disease, diabetes, hypothyroidism, respiratory distress distress, hyperkalemia, dementia On this occasion the found him down on the bathroom floor around 4AM he was unable to get up on his own therefore she called EMS. He had Alzheimer's now for about the last 5 years and is been getting worse for the last year or 2. Still lives at home with her.. States she has good days and bad days where he is very demented and then other days where he is very lucid. She is not surprised by his lack of orientation today and or his confusion. Patient has no pain anywhere. Work-up in the ER so far is negative for infection or sepsis.. She will be admitted overnight in observation status we will do the routine labs and work-up. If no change at worse will discharge in the morning... She like to go to [employer] in the morning and then take him home after lunch.. He is not concerned at all about his behavior today. Medically stable 12/24/2018 patient has done well with no complaints or problems. CBC is normal electrolytes are normal a urinalysis grossly normal blood cultures negative x24 hours Patient is at his baseline and will be discharged home Physical Exam Vital Signs: Temp Pulse Resp BP Pulse Ox 97.5 F 60 16 138/61 H 91 L 12/24/18 07:17 12/24/18 07:17 12/24/18 07:17 12/24/18 07:17 12/24/18 07:17 Intake & Output 12/23/18 12/24/18 12/25/18 06:59 06:59 06:59 Intake Total 1325 Output Total 325 Balance 1000 Weight 127.3 kg 119.5 kg Results Laboratory Results: WBC 8.4 10^3/uL (4.0-10.5) 12/23/18 07:50 RBC 4.04 10^6/uL (4.35-5.55) L 12/23/18 07:50 Hgb 10.1 g/dL (13.5-17.0) L 12/23/18 07:50 Hct 32.5 % (37.9-51.0) L 12/23/18 07:50 MCV 80 fl (80-97) 12/23/18 07:50 MCH 24.9 pg (27.0-33.4) L 12/23/18 07:50 MCHC 31.0 g/dL (32.0-36.0) L 12/23/18 07:50 RDW 19.2 % (11.5-14.0) H 12/23/18 07:50 Plt Count 219 10^3/uL (150-450) 12/23/18 07:50 Lymph % (Auto) 11.5 % (13-45) L 12/23/18 07:50 [place] % (Auto) 6.0 % (3-13) 12/23/18 07:50 Eos % (Auto) 0.9 % (0-6) 12/23/18 07:50 Baso % (Auto) 0.5 % (0-2) 12/23/18 07:50 Absolute Neuts (auto) 6.8 10^3/uL (1.7-8.2) 12/23/18 07:50 Absolute Lymphs (auto) 1.0 10^3/uL (0.5-4.7) 12/23/18 07:50 Absolute Monos (auto) 0.5 10^3/uL (0.1-1.4) 12/23/18 07:50 Absolute Eos (auto) 0.1 10^3/uL (0.0-0.6) 12/23/18 07:50 Absolute Basos (auto) 0.0 10^3/uL (0.0-0.2) 12/23/18 07:50 Seg Neutrophils % 81.1 % (42-78) H 12/23/18 07:50 VBG pH 7.39 (7.30-7.42) 12/23/18 07:50 VBG pCO2 47.3 mmHg (35-63) 12/23/18 07:50 VBG HCO3 28.0 mmol/L (20-32) 12/23/18 07:50 VBG Base Excess 2.4 mmol/L 12/23/18 07:50 Sodium 140.5 mmol/L (137-145) 12/24/18 06:06 Potassium 4.3 mmol/L (3.6-5.0) 12/24/18 06:06 Chloride 107 mmol/L (98-107) 12/24/18 06:06 Carbon Dioxide 28 mmol/L (22-30) 12/24/18 06:06 Anion Gap 6 (5-19) 12/24/18 06:06 BUN 29 mg/dL (7-20) H 12/24/18 06:06 Creatinine 1.48 mg/dL (0.52-1.25) H 12/24/18 06:06 Est GFR ( Amer) 55 (>60) L 12/24/18 06:06 Est GFR (MDRD) Non-Af 46 (>60) L 12/24/18 06:06 Glucose 99 mg/dL (75-110) 12/24/18 06:06 POC Glucose 101 mg/dL (70-110) 12/24/18 06:05 Lactic Acid 1.1 mmol/L (0.7-2.1) 12/23/18 07:50 Calcium 9.1 mg/dL (8.4-10.2) 12/24/18 06:06 Magnesium 2.2 mg/dL (1.6-2.3) 12/24/18 06:06 Total Bilirubin 0.4 mg/dL (0.2-1.3) 12/23/18 07:50 Direct Bilirubin 0.2 mg/dL (0.0-0.4) 12/23/18 07:50 Neonat Total Bilirubin Not Reportable 12/23/18 07:50 Neonat Direct Bilirubin Not Reportable 12/23/18 07:50 Neonat Indirect Bili Not Reportable 12/23/18 07:50 AST 19 U/L (17-59) 12/23/18 07:50 ALT 10 U/L (<50) 12/23/18 07:50 Alkaline Phosphatase 63 U/L (38-126) 12/23/18 07:50 Creatine Kinase 94 U/L (55-170) 12/23/18 07:50 CK-MB (CK-2) 1.45 ng/mL (<4.55) 12/23/18 07:50 Troponin I 0.018 ng/mL 12/23/18 07:50 Total Protein 6.8 g/dL (6.3-8.2) 12/23/18 07:50 Albumin 3.9 g/dL (3.5-5.0) 12/23/18 07:50 Urine Color YELLOW 12/23/18 08:30 Urine Appearance CLEAR 12/23/18 08:30 Urine pH 7.0 (5.0-9.0) 12/23/18 08:30 Ur Specific [place] 1.016 12/23/18 08:30 Urine Protein 30 mg/dL (NEGATIVE) H 12/23/18 08:30 Urine Glucose (UA) NEGATIVE mg/dL (NEGATIVE) 12/23/18 08:30 Urine Ketones TRACE mg/dL (NEGATIVE) H 12/23/18 08:30 Urine Blood MODERATE (NEGATIVE) H 12/23/18 08:30 Urine Nitrite NEGATIVE (NEGATIVE) 12/23/18 08:30 Urine Bilirubin NEGATIVE (NEGATIVE) 12/23/18 08:30 Urine Urobilinogen NEGATIVE mg/dL (<2.0) 12/23/18 08:30 Ur Leukocyte Esterase NEGATIVE (NEGATIVE) 12/23/18 08:30 Urine WBC (Auto) 0 /HPF 12/23/18 08:30 Urine RBC (Auto) 43 /HPF 12/23/18 08:30 Squamous Epi Cells Auto <1 /HPF 12/23/18 08:30 Urine Mucus (Auto) RARE /LPF 12/23/18 08:30 Urine Ascorbic Acid NEGATIVE (NEGATIVE) 12/23/18 08:30 12/23/18 07:50 CK-MB (CK-2) 1.45 Troponin I 0.018 Impressions: Chest X-Ray 12/23/18 07:13 IMPRESSION: STABLE CARDIOMEGALY. NO ACUTE RADIOGRAPHIC FINDING IN THE CHEST. Abdomen/Pelvis CT 12/23/18 09:38 IMPRESSION: 1. GALLSTONE. NO APPARENT ACUTE FINDINGS. 2. PROBABLE CORTICAL CYST IN THE RIGHT KIDNEY. 3. NO OTHER SIGNIFICANT OR ACUTE PROCESS IN THE ABDOMEN OR PELVIS. Head CT 12/23/18 09:38 IMPRESSION: MILD CHRONIC CHANGES OF ATROPHY AND MICROVASCULAR ISCHEMIA. NO ACUTE PROCESS. EVIDENCE OF ACUTE STROKE: NO. Stroke Is this a Stroke Patient?: No Acute Heart Failure - Is this a Heart Failure Patient?: No
[2018-12-24] MEDS: METOPROLOL SUCCINATE 25 MG TAB.SR.24H PO SCH (11:25)
[2018-12-24] MEDS: FUROSEMIDE 40 MG TABLET PO SCH (11:25)
[2018-12-24] MEDS: FAMOTIDINE 20 MG TABLET PO SCH (11:26)
[2018-12-24] MEDS: AMLODIPINE BESYLATE 10 MG TABLET PO SCH (11:26)
[2018-12-24] MEDS: SACUBITRIL/VALSARTAN 49 MG/51 MG TABLET PO SCH (11:28)
[2018-12-24 11:45] VITALS: BP 153/68
== END 2018-12-24 14:12 | disposition home health service (06) ==
LOC: ER 06:02 → EH 12:18 → 4W 13:52
PROVIDERS: ADMIT Internal Medicine; ATTEND Internal Medicine
DX: R41.0 Disorientation, unspecified (principal); W19.XXXA Unspecified fall, initial encounter; Y92.002 Bathroom of unspecified non-institutional (private) residence as the place of occurrence of the external cause; I11.0 Hypertensive heart disease with heart failure; I50.23 Acute on chronic systolic (congestive) heart failure; G30.9 Alzheimer's disease, unspecified; F02.80 Dementia in other diseases classified elsewhere, unspecified severity, without behavioral disturbance, psychotic disturbance, mood disturbance, and anxiety; E11.22 Type 2 diabetes mellitus with diabetic chronic kidney disease; I13.0 Hypertensive heart and chronic kidney disease with heart failure and stage 1 through stage 4 chronic kidney disease, or unspecified chronic kidney disease; N18.9 Chronic kidney disease, unspecified; E66.01 Morbid (severe) obesity due to excess calories; E03.9 Hypothyroidism, unspecified; I25.10 Atherosclerotic heart disease of native coronary artery without angina pectoris; I25.2 Old myocardial infarction; J44.9 Chronic obstructive pulmonary disease, unspecified; R00.0 Tachycardia, unspecified; N40.0 Benign prostatic hyperplasia without lower urinary tract symptoms; R10.814 Left lower quadrant abdominal tenderness; Z79.899 Other long term (current) drug therapy; Z79.82 Long term (current) use of aspirin; Z79.84 Long term (current) use of oral hypoglycemic drugs; Z95.5 Presence of coronary angioplasty implant and graft; Z95.810 Presence of automatic (implantable) cardiac defibrillator; Z87.891 Personal history of nicotine dependence; Z96.653 Presence of artificial knee joint, bilateral
CPT/HCPCS: 93005; 99291; 36415 ×2; 87040; 82553; 82962 ×2; 82550; 83735 ×2; 85025; 80048; 80053; 81001; 84484; 82803; 83605; 71045; 70450; 74176; 93010; G0378 ×3; J1644 ×2; A9270 ×19; J7030 ×2